=== PATIENT | male | born 1940 | race Caucasian/White ===

== ENCOUNTER 2016-03-17 12:50 | Inpatient (IN) | payer MEDICARE ==
[~2016-03-17] VITALS: Ht 170.2 cm; Wt 96.0 kg
[2016-03-17] VITALS (7 sets, daily range): BP systolic 130–168; BP diastolic 64–73; PULSE 82–104; RESP 19–20; TEMP 98.2–98.4; O2SAT 94–100
[2016-03-17] MEDS ORDERED: ONDANSETRON HCL 4 MG/2 ML VIAL ONE (12:58)
[2016-03-17] MEDS ORDERED: MORPHINE SULFATE 8 MG/ML INJ ONE (12:58)
[2016-03-17 13:18] LABS: BASOPHIL % 0.4 % (0.0-2.0); EOSINOPHIL # 0.2 TH/MM3 (0-0.4); EOSINOPHIL % 2.3 % (0.0-4.0); HEMATOCRIT 37.6 % (39.0-51.0); I-STAT POTASSIUM 3.4 MMOL/L (3.5-4.9); LYMPH % 13.9 % (9.0-44.0); LYMPHOCYTE # 1.4 TH/MM3 (1.0-4.8); MEAN CORPUSCULAR HEMOGLOBIN 31.5 PG (27.0-34.0); MEAN CORPUSCULAR HGB CONC 34.6 % (32.0-36.0); NEUT % 77.4 % (16.0-70.0); PLATELET COUNT 220 TH/MM3 (150-450); RED BLOOD COUNT 4.13 MIL/MM3 (4.50-5.90); RED CELL DISTRIBUTION WIDTH 13.5 % (11.6-17.2); WHITE BLOOD COUNT 10.3 TH/MM3 (4.0-11.0)
[2016-03-17 13:23] LABS: HEMO FLAGS AUTO DIFF
--- NOTE | 2016-03-17 13:23 | RADRPT ---
EXAM DATE/TIME: 03/17/2016 12:45 [facility] COMPARISON: No previous studies available for comparison. INDICATIONS : Trauma alert, fall off ladder. MEDICAL HISTORY : None. SURGICAL HISTORY : None. ENCOUNTER: Initial ACUITY: 1 day PAIN SCORE: 10/10 LOCATION: Right pelvis FINDINGS: Patient on a trauma board. There does appear to be a fracture involving the right side of the pelvis which may extend into the right acetabulum. The fracture appears to be relatively nondisplaced. There is good position at the pubic symphysis. No joint dislocation of the hips. There is alignment of the SI joints. A CT scan will be performed for further evaluation. CONCLUSION: There appears to be a fracture on the right side of the pelvis which may extend into the right acetab ulum. Tez Delgado MD on March 17, 2016 at 13:21 Board Certified Radiologist. This report was verified electronically.
--- NOTE | 2016-03-17 13:24 | RADRPT ---
EXAM DATE/TIME: 03/17/2016 12:45 [facility] COMPARISON: No previous studies available for comparison. INDICATIONS : Trauma alert, fall off ladder. MEDICAL HISTORY : None. SURGICAL HISTORY : None. ENCOUNTER: Initial ACUITY: 1 day PAIN SCORE: 0/10 LOCATION: Bilateral chest FINDINGS: Patient is on trauma board. The lungs are grossly clear. The heart size is upper limits of normal. No definite pleural effusions or pulmonary edema is seen. The bony structures are grossly intact. [facility] er, patient on a CT scan of the thorax for further evaluation. CONCLUSION: Lung lau appear to be clear. CT scan of the thorax to follow. Tez Delgado MD on March 17, 2016 at 13:22 Board Certified Radiologist. This report was verified electronically.
--- NOTE | 2016-03-17 13:25 | RADRPT ---
EXAM DATE/TIME: 03/17/2016 13:04 [facility] COMPARISON: No previous studies available for comparison. INDICATIONS : Trauma alert, fell off ladder. RADIATION DOSE: 56.35 CTDIvol (mGy) MEDICAL HISTORY : Non-responsive. SURGICAL HISTORY : Non-responsive. ENCOUNTER: Initial ACUITY: 1 day PAIN SCALE: Non-responsive LOCATION: cranial TECHNIQUE: Multiple contiguous axial images were obtained of the head. Using automated exposure control and adj ustment of the mA and/or kV according to patient size, radiation dose was kept as low as reasonably a chievable to obtain optimal diagnostic quality images. FINDINGS: CEREBRUM: The ventricles are normal for age. No evidence of midline shift, mass lesion, hemorrhage or acute in farction. No extra-axial fluid collections are seen. POSTERIOR FOSSA: The cerebellum and brainstem are intact. The 4th ventricle is midline. The cerebellopontine angle i s unremarkable. EXTRACRANIAL: The visualized portion of the orbits is intact. SKULL: The calvaria is intact. No evidence of skull fracture. CONCLUSION: No acute intracranial hemorrhage. Tez Delgado MD on March 17, 2016 at 13:23 Board Certified Radiologist. This report was verified electronically.
[2016-03-17 13:27] LABS: PROTHROMBIN TIME - PATIENT 11.2 SEC (9.8-11.6)
[2016-03-17] MEDS ORDERED: LIDOCAINE 2%/EPINEPHrine 1:100,000 30ML MDV INFIL ONE (13:30)
[2016-03-17] MEDS ORDERED: IOHEXOL 350 MG/ML 10 ML VIAL (for RAD DIAG) IV ONE (13:32)
--- NOTE | 2016-03-17 13:36 | PD ---
HPI Chief Complaint: trauma Time Seen by Provider: 12:53 Travel History International Travel<30 days: No Contact w/Intl Traveler<30days: No Traveled to known affect area: No History of Present Illness HPI Patient in his 70s was up on the tree cutting some limbs when he got hit by a tree limb and fell down. Soon after he fell he was complaining of right-sided hip pain. Patient was brought in by EMS. Boarded and collared. He was GCS of 15 the entire transportation along with stable vital signs. When he arrived he continued to be GCS of 15. He was in significant pain. I was in the room prior to patient's arrival waiting for him along with the trauma surgeon. [facility] Past Medical History Narrative Medical List of his past medical history as reviewed from the nursing note. Allergies-Medications (Allergen,Severity, Reaction): Coded Allergies: UNOBTAINABLE (Unverified , 03/17/16) Comments Unknown Narrative Medication Unknown Review of Systems Except as stated in HPI: all other systems reviewed are Neg Physical Exam Narrative GENERAL: Awake, alert, elderly, boarded and collared, moderate to significant distress SKIN: Warm and dry. Pale HEAD: Atraumatic. Normocephalic. EYES: Pupils equal and round. No scleral icterus. No injection or drainage. ENT: No nasal bleeding or discharge. Mucous membranes pink and moist. NECK: Trachea midline. No JVD. CARDIOVASCULAR: Regular rate and rhythm. No murmur appreciated. RESPIRATORY: No accessory muscle use. Significantly diminished air entry on the right side. GASTROINTESTINAL: Abdomen soft, non-tender, nondistended. Hepatic and splenic margins not palpable. MUSCULOSKELETAL: No obvious deformities. No clubbing. No cyanosis. No edema. Patient refused to flex his right hip due to the pain. NEUROLOGICAL: Awake and alert. No obvious cranial nerve deficits. Motor grossly within normal limits. Normal speech. PSYCHIATRIC: Anxious; insight and judgment normal. Data Data Last Documented VS Vital Signs Date Time Temp Pulse Resp B/P Pulse Ox O2 Delivery O2 Flow Rate FiO2 03/17/16 12:30 94 5.00 Orders I-Stat Profile (03/17/16 12:53) I-Stat Creatinine (03/17/16 12:53) Complete Blood Count With Diff (03/17/16 12:53) Prothrombin Time / Inr (Pt) (03/17/16 12:53) Act Partial Throm Time (Ptt) (03/17/16 12:53) Type And Screen (03/17/16 12:53) Chest, Single Ap (03/17/16 12:53) Pelvis, Ap Only (Routine) (03/17/16 12:53) Ct Brain W/O Iv Contrast(Rout) (03/17/16 12:53) Ct Cerv Spine W/O Contrast (03/17/16 12:53) Ct Abd/Pel W Iv Contrast(Rout) (03/17/16 12:53) Ct Thorax/ Chest W Iv Contrast (03/17/16 12:53) Ct Thor Spine W/O Contrast (03/17/16 12:53) Ct Lumb Spine W/O Contrast (03/17/16 12:53) Iv Access Insert/Monitor (03/17/16 12:53) Ecg Monitoring (03/17/16 12:53) Oximetry (03/17/16 12:53) Oxygen Administration (03/17/16 12:53) Ed Poc Ultrasound (03/17/16 12:53) Morphine Inj (Morphine Inj) (03/17/16 12:58) Ondansetron Inj (Zofran Inj) (03/17/16 12:58) Admit Order (Ed Use Only) (03/17/16 13:28) Lidocai-Epi 2%-1:100,000 Inj (Xylocaine- (03/17/16 13:30) Labs Laboratory Tests Test 03/17/16 12:58 White Blood Count 10.3 TH/MM3 Red Blood Count 4.13 MIL/MM3 Hemoglobin 13.0 GM/DL Bedside Hemoglobin 12.6 G/DL Hematocrit 37.6 % Bedside Hematocrit 37.0 % Mean Corpuscular Volume 91.0 FL Mean Corpuscular Hemoglobin 31.5 PG Mean Corpuscular Hemoglobin 34.6 % Concent Red Cell Distribution Width 13.5 % Platelet Count 220 TH/MM3 Mean Platelet Volume 8.7 FL Neutrophils (%) (Auto) 77.4 % Lymphocytes (%) (Auto) 13.9 % Monocytes (%) (Auto) 6.0 % Eosinophils (%) (Auto) 2.3 % Basophils (%) (Auto) 0.4 % Neutrophils # (Auto) 8.0 TH/MM3 Lymphocytes # (Auto) 1.4 TH/MM3 Monocytes # (Auto) 0.6 TH/MM3 Eosinophils # (Auto) 0.2 TH/MM3 Basophils # (Auto) 0.0 TH/MM3 CBC Comment AUTO DIFF Differential Comment AUTO DIFF CONFIRMED Platelet Estimate NORMAL Platelet Morphology Comment NORMAL Ovalocytes Prothrombin Time 11.2 SEC Prothromb Time International 1.0 RATIO Ratio Activated Partial 22.0 SEC Thromboplast Time Bedside Sodium 145 MMOL/L Bedside Potassium 3.4 MMOL/L Bedside Chloride 106 MMOL/L Bedside Blood Urea Nitrogen 26 MG/DL Bedside Creatinine 1.0 MG/DL Bedside Glucose 137 MG/DL Blood Type A POSITIVE Antibody Screen NEGATIVE MDM Medical Screen Exam Complete: Yes Emergency Medical Condition: Yes Medical Record Reviewed: Yes EKG Prior to Arrival: Yes Differential Diagnosis Right hip fracture, intracranial injury, cervical fracture, intrathoracic injury , intra-abdominal injury, pelvic fracture, pneumothorax Narrative Course 1:33 PM given a portable x-ray of the pelvis patient was put on prophylactic pelvic binder. Patient was given pain medication and rolled off the backboard. When the trauma surgeon palpated his spine and patient was complaining of midthoracic point tenderness. He went to CAT scan and his vitals and GCS remained stable. Patient is back into the ER now and the CT scan shows a right anterior pneumothorax which was not visible on the portable chest x-ray. Patient is getting a chest tube by the trauma surgeon currently. He has requested for a ICU admission. Patient has pelvic fracture and multiple rib fractures. Critical Care Narrative Aggregate critical care time was 30 minutes. Time to perform other separately billable procedures was not included in the critical care time. My time did not include minutes spent treating any other patients simultaneously or on activities that did not directly contribute to the patient's treatment. The services I provided to this patient were to treat and/or prevent clinically significant deterioration that could result in: Trauma alert, pelvic fracture, pneumothorax I provided critical care services requiring my management, as noted below: Chart data review, documentation time, medication orders and management, vital sign assessments/reviewing monitor data, ordering and reviewing lab tests, ordering and interpreting/reviewing x-rays and diagnostic studies, care of the patient and discussion of the patient with the admitting physicians. Procedures Procedure Narrative Emergency department E-FAST was performed with patient consent. The curvilinear probe was used in the right upper quadrant/Morison's pouch, suprapubic, left upper quadrant/spleenorenal space, epigastric, parasternal long axis and anterior bilateral chest wall. There was no evidence of peritoneal free fluid, pericardial effusion, or pneumothorax. Trauma Alert - Level One Trauma Alert Level One: Full trauma team activate, Patient evaluated, Trauma surgeon summoned Time Surgeon Summoned: 12:[address] Clark Diagnosis Diagnosis: Primary Impression: Fall Qualified Code: W19.XXXA - Fall, initial encounter Additional Impressions: Rib fractures Qualified Code: S22.41XA - Closed fracture of multiple ribs of right side, initial encounter Traumatic pneumothorax Qualified Code: S27.0XXA - Traumatic pneumothorax, initial encounter Pelvic fracture Qualified Code: S32.511A - Closed fracture of superior ramus of right pubis, initial encounter Admitting Physician Requests: Admit Altagracia Westbrook MD Mar 17, 2016 13:36
--- NOTE | 2016-03-17 13:56 | RADRPT ---
EXAM DATE/TIME: 03/17/2016 13:04 [facility] COMPARISON: No previous studies available for comparison. INDICATIONS : Trauma alert, fall from ladder. IV CONTRAST: 95 cc Omnipaque 350 (iohexol) IV ; Cumulative dose for multiple exams. ORAL CONTRAST: No oral contrast ingested. RADIATION DOSE: 21.93 CTDIvol (mGy) ; Combined studies - Thorax/Abdomen/Pelvis MEDICAL HISTORY : Non-responsive. SURGICAL HISTORY : Non-responsive. ENCOUNTER: Initial ACUITY: 1 day PAIN SCALE: Non-responsive LOCATION: abdomen TECHNIQUE: Volumetric scanning of the abdomen and pelvis was performed. Using automated exposure control and ad justment of the mA and/or kV according to patient size, radiation dose was kept as low as reasonably achievable to obtain optimal diagnostic quality images. FINDINGS: LOWER LUNGS: Small right pleural effusion. Multiple right rib fractures are present. Subcutaneous emphysema is not ed over the right posterior chest wall and paraspinous musculature. There is a moderate size right ba silar pneumothorax. LIVER: Homogeneous density without lesion. There is no dilation of the biliary tree. The patient is status post cholecystectomy. SPLEEN: Normal size without lesion. PANCREAS: Within normal limits. KIDNEYS: Normal in size and shape. There is no solid mass, stone or hydronephrosis. There are 2 simple appear ing cysts in the right kidney. ADRENAL GLANDS: The left adrenal gland is intact. There is a low density homogeneous mass in the right adrenal gland measuring 3.5 x 2.2 cm. VASCULAR: There is no aortic aneurysm. BOWEL/MESENTERY: The stomach, small bowel, and colon demonstrate no acute abnormality. There are multiple diverticuli . There is no free intraperitoneal air or fluid. ABDOMINAL WALL: Within normal limits. RETROPERITONEUM: There is no lymphadenopathy. BLADDER: No wall thickening or mass. REPRODUCTIVE: Within normal limits. INGUINAL: There is no lymphadenopathy or hernia. MUSCULOSKELETAL: There is a comminuted fracture deformity involving the right acetabulum with multiple fracture lines involving the roof of the acetabulum extending anteriorly and posteriorly. The femoral head and neck are intact. There is a nondisplaced fracture involving the right inferior pubic rami. There is a subt le fracture involving the right side of the sacrum as well. The sacroiliac joints are congruent. Ther e are multiple right rib fractures. CONCLUSION: 1. Moderate size right basilar pneumothorax with small right effusion and multiple rib fractures. 2. Comminuted fracture involving the right acetabulum. 3. Subtle fracture involving the right side of the sacrum. Nondisplaced fracture involving the right inferior pubic rami. 4. Right adrenal mass which is nonspecific but likely represents an adenoma. 5. Moderate diverticulosis. Efraín Anderson MD on March 17, 2016 at 13:47 Board Certified Radiologist. This report was verified electronically.
--- NOTE | 2016-03-17 14:00 | RADRPT ---
EXAM DATE/TIME: 03/17/2016 13:04 1 [facility] COMPARISON: No previous studies available for comparison. INDICATIONS : Trauma alert, fall from ladder. RADIATION DOSE: CTDIvol (mGy) ; Reconstructed from previous dataset MEDICAL HISTORY : Non-responsive. SURGICAL HISTORY : Non-responsive. ENCOUNTER: Initial ACUITY: 1 day PAIN SCALE: Non-responsive LOCATION: back TECHNIQUE: Volumetric scanning of the lumbar spine was performed. Multiplanar reconstructions in the sagittal, coronal and oblique axial planes were performed. Using automated exposure control and adjustment of the mA and/or kV according to patient size, radiation dose was kept as low as reasonably achievable t o obtain optimal diagnostic quality images. FINDINGS: VERTEBRAE: Normal vertebral body height. ALIGNMENT: No evidence of subluxation. The axial images demonstrate that the lumbar vertebral bodies and posterior elements are intact. Ther e is an enlarged left transverse process at the L5 level which articulates with the upper sacrum. A p ortion of the right acetabular fracture is visualized. There is a nondisplaced fracture involving the right side of the sacrum. The paravertebral soft tissues are within normal limits. Subcutaneous emph ysema is noted over the right paraspinous musculature. There are degenerative changes involving the f acet joints. There are annular disc bulges at the L3-4 and L4-5 levels. CONCLUSION: 1. Nondisplaced fracture involving the right side of the sacrum. 2. Visualization of a portion of the known right acetabular fracture. 3. The lumbar vertebra and posterior elements are intact. Efraín Anderson MD on March 17, 2016 at 13:55 Board Certified Radiologist. This report was verified electronically.
[2016-03-17] MEDS: SODIUM CHLOR 0.9% 1000 ML INJ 1,000 ML IV SCH (14:03)
--- NOTE | 2016-03-17 14:03 | RADRPT ---
EXAM DATE/TIME: 03/17/2016 13:08 [facility] COMPARISON: No previous studies available for comparison. INDICATIONS : Trauma alert, fall from ladder. RADIATION DOSE: 45.74 CTDIvol (mGy) MEDICAL HISTORY : Non-responsive. SURGICAL HISTORY : Non-responsive. ENCOUNTER: Initial ACUITY: 1 day PAIN SCALE: Non-responsive LOCATION: neck TECHNIQUE: Volumetric scanning of the cervical spine was performed. Multiplanar reconstructions in the sagittal, coronal and oblique axial planes were performed. Using automated exposure control and adjustment o f the mA and/or kV according to patient size, radiation dose was kept as low as reasonably achievable to obtain optimal diagnostic quality images. FINDINGS: The sagittal reconstructions demonstrate normal alignment and normal prevertebral soft tissues. The d ens is intact and there is a normal atlantoaxial relationship. Degenerative changes are present at th e C4-5, C5-6 and C6-7 levels with disc space narrowing hypertrophic change. There are mild degenerati ve change involving the atlantal axial joint as well. The axial images demonstrate that the vertebral bodies and posterior elements are intact. The soft ti ssues are within normal limits. There is no evidence of acute fracture or malalignment. Subcutaneous emphysema is noted along the right side of the neck and back. Right posterior rib fractures are again noted. The known right pneumothorax is partially visualized. CONCLUSION: 1. The cervical spine is intact with no acute fracture or malalignment. 2. Right posterior rib fractures are again noted with partial visualization of the known pneumothorax and continues emphysema. Efraín Anderson MD on March 17, 2016 at 13:59 Board Certified Radiologist. This report was verified electronically.
[2016-03-17 14:08] LABS: PLATELET ESTIMATE SMEAR NORMAL (NORMAL); PLATELET MORPHOLOGY NORMAL (NORMAL); SCAN/DIFF AUTO DIFF CONFIRMED
--- NOTE | 2016-03-17 14:08 | RADRPT ---
EXAM DATE/TIME: 03/17/2016 13:09 [facility] COMPARISON: CHEST SINGLE AP, March 17, 2016, 12:45. INDICATIONS : Trauma alert, fall from ladder. IV CONTRAST: 95 cc Omnipaque 350 (iohexol) IV ; Cumulative dose for multiple exams. RADIATION DOSE: 21.93 CTDIvol (mGy) ; Combined studies - Thorax/Abdomen/Pelvis MEDICAL HISTORY : Non-responsive. SURGICAL HISTORY : Non-responsive. ENCOUNTER: Initial ACUITY: 1 day PAIN SCALE: Non-responsive LOCATION: chest TECHNIQUE: Volumetric scanning of the chest was performed. Using automated exposure control and adjustment of t he mA and/or kV according to patient size, radiation dose was kept as low as reasonably achievable to obtain optimal diagnostic quality images. FINDINGS: There are multiple right posterior rib fractures involving the fifth through 10th ribs. There is adjacent subcutaneous emphysema. There is a moderate size right pneumothorax greatest at the anterio r lung base. There is a small right pleural effusion. There is patchy infiltrate in the right central and posterior lung. There is mediastinal shift to the left. The heart size is within normal limits. There is no evidence of adenopathy. There is no pericardial effusion. CONCLUSION: 1. Multiple right-sided rib fractures with moderate-sized pneumothorax and mediastinal shift to the l eft. 2. Multiple pleural effusion and patchy infiltrate in the right lung. Efraín Anderson MD on March 17, 2016 at 14:01 Board Certified Radiologist. This report was verified electronically.
--- NOTE | 2016-03-17 14:10 | PD ---
Data Data Last Documented VS Vital Signs Date Time Temp Pulse Resp B/P Pulse Ox O2 Delivery O2 Flow Rate FiO2 03/17/16 12:30 94 5.00 Orders I-Stat Profile (03/17/16 12:53) I-Stat Creatinine (03/17/16 12:53) Complete Blood Count With Diff (03/17/16 12:53) Prothrombin Time / Inr (Pt) (03/17/16 12:53) Act Partial Throm Time (Ptt) (03/17/16 12:53) Type And Screen (03/17/16 12:53) Chest, Single Ap (03/17/16 12:53) Pelvis, Ap Only (Routine) (03/17/16 12:53) Ct Brain W/O Iv Contrast(Rout) (03/17/16 12:53) Ct Cerv Spine W/O Contrast (03/17/16 12:53) Ct Abd/Pel W Iv Contrast(Rout) (03/17/16 12:53) Ct Thorax/ Chest W Iv Contrast (03/17/16 12:53) Ct Thor Spine W/O Contrast (03/17/16 12:53) Ct Lumb Spine W/O Contrast (03/17/16 12:53) Iv Access Insert/Monitor (03/17/16 12:53) Ecg Monitoring (03/17/16 12:53) Oximetry (03/17/16 12:53) Oxygen Administration (03/17/16 12:53) Ed Poc Ultrasound (03/17/16 12:53) Morphine Inj (Morphine Inj) (03/17/16 12:58) Ondansetron Inj (Zofran Inj) (03/17/16 12:58) Admit Order (Ed Use Only) (03/17/16 13:28) Lidocai-Epi 2%-1:100,000 Inj (Xylocaine- (03/17/16 13:30) Labs Laboratory Tests Test 03/17/16 12:58 White Blood Count 10.3 TH/MM3 Red Blood Count 4.13 MIL/MM3 Hemoglobin 13.0 GM/DL Bedside Hemoglobin 12.6 G/DL Hematocrit 37.6 % Bedside Hematocrit 37.0 % Mean Corpuscular Volume 91.0 FL Mean Corpuscular Hemoglobin 31.5 PG Mean Corpuscular Hemoglobin 34.6 % Concent Red Cell Distribution Width 13.5 % Platelet Count 220 TH/MM3 Mean Platelet Volume 8.7 FL Neutrophils (%) (Auto) 77.4 % Lymphocytes (%) (Auto) 13.9 % Monocytes (%) (Auto) 6.0 % Eosinophils (%) (Auto) 2.3 % Basophils (%) (Auto) 0.4 % Neutrophils # (Auto) 8.0 TH/MM3 Lymphocytes # (Auto) 1.4 TH/MM3 Monocytes # (Auto) 0.6 TH/MM3 Eosinophils # (Auto) 0.2 TH/MM3 Basophils # (Auto) 0.0 TH/MM3 CBC Comment AUTO DIFF Differential Comment AUTO DIFF CONFIRMED Platelet Estimate NORMAL Platelet Morphology Comment NORMAL Ovalocytes Prothrombin Time 11.2 SEC Prothromb Time International 1.0 RATIO Ratio Activated Partial 22.0 SEC Thromboplast Time Bedside Sodium 145 MMOL/L Bedside Potassium 3.4 MMOL/L Bedside Chloride 106 MMOL/L Bedside Blood Urea Nitrogen 26 MG/DL Bedside Creatinine 1.0 MG/DL Bedside Glucose 137 MG/DL Blood Type A POSITIVE Antibody Screen NEGATIVE MDM Supervised Visit with SHERYL: No Procedures Procedure Narrative CHEST TUBE THORACOSTOMY: The right chest was prepped with Betadine and sterilely draped. The area of the fifth intercostal interspace was infiltrated with 1% lidocaine plain. A 3 centimeter incision was made with a scalpel at the fifth intercostal space. Blunt dissection to the fourth intercostal interspace performed and the pleura was punctured with immediate ocampo of air. Finger was inserted in the space and thoracostomy tube was placed, directed posteriorly and superiorly. Tube draining well. The thoracostomy tube was secured with suture. Sterile seal dressing placed. Patient tolerated procedure well. Procedure was supervised by trauma surgeon Dr. Clark. 32 F chest tube placed in right chest. Post procedure CXR completed and confirmed placement of chest tube. Diagnosis Primary Impression: Fall Qualified Code: W19.XXXA - Fall, initial encounter Additional Impressions: Rib fractures Qualified Code: S22.41XA - Closed fracture of multiple ribs of right side, initial encounter Pelvic fracture Qualified Code: S32.511A - Closed fracture of superior ramus of right pubis, initial encounter Traumatic pneumothorax Qualified Code: S27.0XXA - Traumatic pneumothorax, initial encounter Leeanne Shelley DO Mar 17, 2016 14:10
[2016-03-17] MEDS ORDERED: MISCELLANEOUS NURSING INFORMATION XX SCH (14:15)
[2016-03-17] MEDS ORDERED: CHLORHEXIDINE GLUCONATE 2 % 1 PACK (2 CLOTHS) TOP PRN (14:15)
[2016-03-17] MEDS ORDERED: ONDANSETRON HCL 4 MG/2 ML VIAL IV PRN (14:15)
[2016-03-17] MEDS ORDERED: ENALAPRILAT 1.25 MG/ML VIAL IV PRN (14:15)
--- NOTE | 2016-03-17 14:23 | RADRPT ---
EXAM DATE/TIME: 03/17/2016 13:04 [facility] COMPARISON: CT THORAX W CONTRAST, March 17, 2016, 13:09. INDICATIONS : Trauma alert, fall from ladder. RADIATION DOSE: CTDIvol (mGy) ; Reconstructed from previous dataset MEDICAL HISTORY : Non-responsive. SURGICAL HISTORY : Non-responsive. ENCOUNTER: Initial ACUITY: 1 day PAIN SCALE: Non-responsive LOCATION: back TECHNIQUE: Volumetric scanning of the thoracic spine was performed. Multiplanar reconstructions in the sagittal , coronal and oblique axial planes were performed. Using automated exposure control and adjustment o f the mA and/or kV according to patient size, radiation dose was kept as low as reasonably achievable to obtain optimal diagnostic quality images. FINDINGS: The vertebral bodies of the thoracic spine are in normal alignment without evidence of subluxation. Vertebral body height is maintained. No fractures are seen. There is a mild to moderate scoliosis wi th moderate diffuse degenerative changes. There is sclerosis and anterior and lateral spurring. There is mild osteopenia. The axial images demonstrate that the vertebral bodies and posterior elements are intact. There are m ultiple right posterior rib fractures again identified involving the fourth through 11th ribs with ad jacent subcutaneous emphysema. There is a small right pleural effusion with patchy infiltrate in the right lung. Small portion of the right basilar pneumothorax is visualized. The known right adrenal ma ss is \visualized as well. CONCLUSION: 1. The thoracic vertebral bodies and posterior elements are intact. 2. Right posterior rib fractures involving the fourth through 11th ribs with partial visualization of the known pneumothorax, small effusion and lung infiltrate. 3. Visualization of the known right adrenal mass. Efraín Anderson MD on March 17, 2016 at 14:17 Board Certified Radiologist. This report was verified electronically.
--- NOTE | 2016-03-17 14:53 | RADRPT ---
EXAM DATE/TIME: 03/17/2016 14:37 [facility] COMPARISON: CT THORAX W CONTRAST, March 17, 2016, 13:09. CHEST SINGLE AP, March 17, 2016, 12:45. INDICATIONS : Evaluate for pneumothorax, post chest tube placement. MEDICAL HISTORY : None. SURGICAL HISTORY : None. ENCOUNTER: Initial ACUITY: 1 day PAIN SCORE: 0/10 LOCATION: Right chest FINDINGS: A right chest tube has been placed. No definite pneumothorax is demonstrated. The lung lau are aer ated. No pleural effusions. Heart size is stable. Subcutaneous emphysema seen along the right chest w all. CONCLUSION: Right chest tube in place. No definite pneumothorax. Tez Delgado MD on March 17, 2016 at 14:51 Board Certified Radiologist. This report was verified electronically.
[2016-03-17] MEDS ORDERED: PANTOPRAZOLE SODIUM 40 MG VIAL IVP SCH (15:00)
--- NOTE | 2016-03-17 15:24 | RADRPT ---
EXAM DATE/TIME: 03/17/2016 13:09 [facility] COMPARISON: PELVIS AP ONLY, March 17, 2016, 12:45. INDICATIONS : Fracture post fall. RADIATION DOSE: CTDIvol (mGy) ; Reconstructed from previous dataset MEDICAL HISTORY : Non-responsive. SURGICAL HISTORY : Non-responsive. ENCOUNTER: Initial ACUITY: 1 day PAIN SCALE: Non-responsive LOCATION: pelvis TECHNIQUE: Volumetric scanning of the hip was performed. Using automated exposure control and adjustment of the mA and/or kV according to patient size, radiation dose was kept as low as reasonably achievable to o btain optimal diagnostic quality images. FINDINGS: There are fractures of the anterior and middle and posterior columns of the acetabulum with a fractur e extending through the acetabular roof. Fractures of the superior-inferior pubic rami are also prese nt. There is no widening of the sacroiliac joint or pubic symphysis. The femoral head and neck are in tact. CONCLUSION: 1. 3 column acetabular fracture as above Aaron Cordero MD on March 17, 2016 at 15:10 Board Certified Radiologist. This report was verified electronically.
[2016-03-17] MEDS: DOCUSATE SODIUM 100 MG CAP PO SCH ×2 (15:50→21:00)
[2016-03-17] MEDS: MORPHINE SULFATE 4 MG/ML INJ IV PRN ×3 (15:51→21:13)
--- NOTE | 2016-03-17 16:35 | RADRPT ---
EXAM DATE/TIME: 03/17/2016 16:21 [facility] COMPARISON: CHEST SINGLE AP, March 17, 2016, 14:37. INDICATIONS : Right posterior pain, fell MEDICAL HISTORY : None. SURGICAL HISTORY : Right shoulder surgery ENCOUNTER: Initial ACUITY: 1 day PAIN SCORE: 10/10 LOCATION: Right Shoulder FINDINGS: 2 AP views of the right shoulder were obtained and demonstrate no acute fracture or malalignment. Sub cutaneous emphysema is noted over the right lateral chest wall. The right-sided chest tube is noted i n place. CONCLUSION: 1. No acute fracture or malalignment. 2. Subcutaneous emphysema and right-sided chest tube again noted. Efraín Anderson MD on March 17, 2016 at 16:32 Board Certified Radiologist. This report was verified electronically.
[2016-03-17] MEDS: ACETAMINOPHEN/HYDROcodone 325 MG/5 MG TAB PO PRN ×2 (17:14→21:15)
--- NOTE | 2016-03-17 18:09 | MH ---
cc: ENRIQUETA DOBBS MD DATE OF ADMISSION: 03/17/2016 AKA: [id number] CHIEF COMPLAINT Trauma alert, right hip, right chest pain. HISTORY OF PRESENT ILLNESS The patient is a 75-year-old male, he was on a ladder cutting branches off a tree and he is status post fall. He fell approximately 15 feet. Denies any loss of consciousness and landed on his right side. He was transferred to the emergency department trauma bay with the similar complaints. He was hemodynamically stable en route and stable in the trauma bay. He was complaining of some right-sided pain and was noted to have decreased right-sided breath sounds and minimal crepitus. Chest x-ray obtained did not show significant pneumothorax. The patient was then taken to the CT scanner however and showed a large anterior right pneumothorax along with multiple right rib fractures and a right acetabular fracture. He was stabilized and transferred to [facility] for further evaluation and treatment. PAST MEDICAL HISTORY 1. Hypertension. 2. Cardiac stents, on blood thinner. PAST SURGICAL HISTORY 1. Right shoulder. 2. Bilateral inguinal hernias. 3. Open gallbladder. 4. Multiple eye surgeries. SOCIAL HISTORY Positive smoking. Denies ETOH or IVDA. MEDICATIONS see EMR ALLERGIES NO KNOWN DRUG ALLERGIES. FAMILY HISTORY Denies any hypertension or diabetes. REVIEW OF SYSTEMS GENERAL: Denies loss of consciousness. HEENT: Denies eye pain or ear pain. RESPIRATORY: Complains of some shortness of breath and right-sided chest pain. CARDIAC: Denies palpitations or significant central chest pain. ABDOMEN: Denies nausea or vomiting. GENITOURINARY: Denies dysuria or hematuria. ENDOCRINE: Denies polyuria or polydipsia. HEMATOLOGIC: Denies easy bruising or hemarthrosis. PSYCHIATRIC: Denies change in mood or altered sensorium. INTEGUMENTARY: Complained of some bruising. Denies recent masses. PHYSICAL EXAMINATION GENERAL: The patient in no acute distress. VITAL SIGNS: Pulse 104, blood pressure 168/73, saturation 94% on 2 liters, temperature is 98.2. HEENT: PERRLA. Pupils equal, reactive. NECK: Trachea midline. C-collar in place. HEART: S1, S2, tachy, regular. LUNGS: Decreased breath sounds on the right, minimal crepitus, bilateral expansion. Positive tenderness to palpation on the right. ABDOMEN: Soft, nontender, nondistended. BACK: No step-offs, nontender. PELVIS: Stable. GENITOURINARY: Within normal limits. No blood at the meatus. EXTREMITIES: Moving all extremities. 5/5 motor. NEUROLOGIC: GCS of 15. AAO x4. LABORATORY DIAGNOSTIC DATA WBC 10.3, hemoglobin of 13, hematocrit 37.6, platelets 220. Sodium 145, potassium 3.4, chloride 106, BUN 26, creatinine 1, glucose 137. INR 1, PT 11.2, PTT 22. IMAGING Images reviewed by myself. CT head: No evidence of acute fracture. CT C-spine: No acute fracture. Visualized rib fractures. CT chest, abdomen and pelvis: Moderate-size right pneumo anterior thorax. Small right effusion. Multiple rib fractures. A comminuted acetabular fracture on the right. Anterior sacral fracture nondisplaced. Right inferior pubic rami fracture. Adrenal mass. Diverticulosis. Lumbar spine: No evidence of vertebral lumbar fractures. Thoracic spine: Multiple rib fractures. No evidence of lumbar spine fracture. Right posterior rib fractures 4-11. Shoulder x-ray: No fracture. ASSESSMENT A 75-year-old male status post fall from 15 feet, multiple rib fractures 4-11 on the right, pneumothorax on the right, a right acetabular fracture. PLAN After full radiologic, clinical and diagnostic workup, the patient with above-named complaints including multiple rib fractures 4-11. We will do adequate pain control, pulmonary toilet, recheck a chest x-ray in the morning and keep close monitoring of this. For the patient's pneumothorax, we will place a chest tube for reexpansion and place on 20 mm of suction. We will continue pulmonary toilet, recheck a chest x-ray following chest tube placement in the a.m. For the right acetabular fracture, this was consulted and discussed with orthopedics for further evaluation and likely nonoperative management at this time; further discussion to be made. The patient will be sent to [facility] with consultation, kept n.p.o., pain control, close monitoring with Is and Os, and further evidence of ongoing injury. Greater than 45 minutes were done regarding trauma workup, history, physical and evaluation of this patient. MD ELIZABETH Del Rio/ANASTASIA /5:00 PM /5:31 PM JESE
--- NOTE | 2016-03-17 19:21 | MB ---
cc: BRAD ENGLISH MD DATE OF CONSULTATION 03/17/16 REASON FOR CONSULTATION Right acetabular fracture, right shoulder injury. HISTORY OF PRESENT ILLNESS The patient is a 75-year-old man who was cutting some limbs of a tree, got hit by a tree limb as it was coming down. He fell apparently into a pool area. The patient complained of significant pain about the right side of his chest. He was found to have a pneumothorax on multiple rib fractures. He had chest tube placed, admitted to the hospital. He also had injury about the pelvis showing an acetabular fracture. The trauma physician had contacted me. I did review the imaging. I had requested from radiology to take the current imaging and create a reconstruction of that already performed image for further analysis. The patient denies having pain about the right hip in the past. He denies any specific numbness or tingling radiating down the right lower extremity. He does have a problem about the right shoulder before with previous surgery. PAST MEDICAL HISTORY See the chart as it is documented and he does take some blood thinners for a history of heart disease. ALLERGIES Unknown REVIEW OF SYSTEMS A 12 point review of systems is negative except as noted in the history of present illness. Note that he does also have a history of low back pain and does have some low back pain currently. He states some cramping about the left leg as well. He did have some difficulty breathing with improvement with the chest tube. FAMILY HISTORY Noncontributory. PHYSICAL EXAMINATION VITAL SIGNS: Pulse is 104, respirations 20, blood pressure 168/73. GENERAL: He is awake, alert and oriented x3. He has multiple family members at the bedside including his . The patient even was making a couple of jokes. HEENT: The patient's head is atraumatic. Extraocular muscles are intact. Oropharynx is moist. NECK: Supple. LUNGS: Diminished lung sounds on the right side. He has a chest tube placed on the right side with some bloody drainage. ABDOMEN: Soft and nontender. BACK: Some diffuse tenderness. right shoulder has incision on the lateral aspect of the shoulder. He did not have any real significant pain with internal and external rotation passively of the shoulder. He did, however, have significant tenderness to palpation. An abdominal binder that was applied. I removed the abdominal binder. GENITOURINARY: Genitalia was normal. MUSCULOSKELETAL: He has some mild swelling around the right hip. No significant lacerations noted. EXTREMITIES: He can actively move the toes well on the right foot and the right ankle. He has 2+ dorsalis pedis pulse and normal sensation distally. Examination of the left knee shows no tenderness. He had some mild tenderness about the mid aspect of the calf with no swelling. No instability about the tibia was noted. He can move the toes well. He has 2+ dorsalis pedis pulse. LABORATORY DATA White cell count of 10.3, hematocrit 37.6, platelets of 220. Coagulation studies - INR is 1.0. Chemistries - glucose 137. IMAGING STUDIES I reviewed the imaging of the shoulder, the report including x-rays, which are somewhat suboptimal but I do not appreciate fractures or dislocations. There may be evidence of a distal clavicle excision prior. Imaging of the hip includes x-rays and a reconstructed CT scan that was reviewed. It does show that the patient has a fracture of the right anterior sacrum and, additionally, there are fractures of the posterior column with minimal displacement. There is fracture essentially anterior acetabulum which is very high pubic ramus fracture, no dislocation is noted. IMPRESSION 1. Right sided acetabular fracture, minimal displacement. 2. Sacral fracture. 3. Right shoulder contusion DECISION MAKING I reviewed the results of the imaging with the patient and his . For the shoulder, I recommend conservative management and observation. As for the right acetabular is concerned, would like to review these images with my partner, Dr. David Martínez, who is a traumatology orthopedic surgeon to get his opinion. Based on the displacement, I am leaning towards nonoperative management, especially given the patient's age. However, I would like to have another opinion for the possibility of surgical management. We talked about the recovery timeline typical for acetabular fractures. This probably will end up being delayed and difficult because the patient had the rib fractures and the shoulder injury which will make the use a walker more difficult. Thank you for allowing me to participate in the care of this patient. MD REN Cordoba/ /5:52 PM /7:06 PM
[2016-03-18] VITALS (13 sets, daily range): BP systolic 114–154; BP diastolic 56–74; PULSE 56–86; RESP 14–21; TEMP 97.2–98.4; O2SAT 96–99
[2016-03-18] MEDS: SODIUM CHLOR 0.9% 1000 ML INJ 1,000 ML IV SCH ×3 (00:03→20:33)
[2016-03-18] MEDS: ACETAMINOPHEN/HYDROcodone 325 MG/5 MG TAB PO PRN ×4 (03:24→20:32)
[2016-03-18] MEDS: MORPHINE SULFATE 4 MG/ML INJ IV PRN ×3 (03:29→23:34)
[2016-03-18] MEDS: CHLORHEXIDINE GLUCONATE 2 % 1 PACK (2 CLOTHS) TOP SCH (04:00)
[2016-03-18 04:36] LABS: AUTOMATED NEUTROPHIL # 9.6 TH/MM3 (1.8-7.7); BASOPHIL % 0.2 % (0.0-2.0); EOSINOPHIL # 0.1 TH/MM3 (0-0.4); EOSINOPHIL % 0.6 % (0.0-4.0); HEMATOCRIT 32.2 % (39.0-51.0); HEMO FLAGS DIFF FINAL; LYMPH % 6.6 % (9.0-44.0); LYMPHOCYTE # 0.8 TH/MM3 (1.0-4.8); MEAN CELL VOLUME 92.7 FL (80.0-100.0); MEAN CORPUSCULAR HEMOGLOBIN 31.3 PG (27.0-34.0); MEAN CORPUSCULAR HGB CONC 33.8 % (32.0-36.0); MONO % 9.8 % (0.0-8.0); NEUT % 82.8 % (16.0-70.0); PLATELET COUNT 157 TH/MM3 (150-450); RED BLOOD COUNT 3.48 MIL/MM3 (4.50-5.90); RED CELL DISTRIBUTION WIDTH 13.7 % (11.6-17.2); WHITE BLOOD COUNT 11.6 TH/MM3 (4.0-11.0)
[2016-03-18 05:02] LABS: BICARBONATE 26.8 MEQ/L (21.0-32.0); POTASSIUM 4.1 MEQ/L (3.5-5.1)
--- NOTE | 2016-03-18 05:58 | RADRPT ---
EXAM DATE/TIME: 03/18/2016 04:29 [facility] COMPARISON: CHEST SINGLE AP, March 17, 2016, 14:37. INDICATIONS : Please evaluate after respiratory failure. MEDICAL HISTORY : right side chest tube. SURGICAL HISTORY : None. ENCOUNTER: Subsequent ACUITY: 3 days PAIN SCORE: Non-responsive. LOCATION: Bilateral chest FINDINGS: Subcutaneous emphysema is again seen on the right. Chest tube is present on the right side. No defini te pneumothorax is seen for technique. Slight right lung base atelectasis and/or infiltrate is seen. There may be slight atelectasis in the left lung base. CONCLUSION: Mild right lung base atelectasis and/or infiltrate is seen. Awais Mcnamara MD on March 18, 2016 at 5:56 Board Certified Radiologist. This report was verified electronically.
[2016-03-18] MEDS ORDERED: MAGNESIUM HYDROXIDE SUSP 30 ML CUP PO PRN (08:15)
[2016-03-18] MEDS: DOCUSATE SODIUM 50 MG/SENNA 8.6 MG TAB PO SCH ×2 (08:27→20:32)
[2016-03-18] MEDS: FAMOTIDINE 20 MG TAB PO SCH ×2 (08:27→20:32)
[2016-03-18] MEDS ORDERED: SODIUM CHLORID 0.9% 500 ML INJ 500 ML IV SCH (11:15)
--- NOTE | 2016-03-18 14:59 | PD.ORT.PN ---
Subjective Subjective Remarks Hip that continues to be painful on the right side. Shoulder also has some pain. He denies any new numbness or tingling in either these areas. He worked with physical therapy which she said did give him some improvement. Abduction pillow was at the bedside. Objective Vitals Vital Signs Date Time Temp Pulse Resp B/P Pulse Ox O2 Delivery O2 Flow Rate FiO2 03/18/16 14:00 71 03/18/16 12:00 98.1 86 21 154/70 96 03/18/16 12:00 86 03/18/16 10:00 58 03/18/16 09:28 16 03/18/16 08:31 98 Nasal Cannula 2.00 03/18/16 08:00 98.1 56 20 116/59 99 03/18/16 08:00 56 03/18/16 07:00 99 Nasal Cannula 2.00 03/18/16 06:00 56 03/18/16 04:00 97.2 78 16 128/58 97 03/18/16 04:00 78 03/18/16 02:00 70 03/18/16 00:00 73 03/18/16 00:00 98.3 73 19 114/56 98 03/17/16 22:00 82 03/17/16 21:00 100 Nasal Cannula 4.00 03/17/16 20:00 98.2 98 19 130/64 94 03/17/16 20:00 98 03/17/16 19:00 98 Nasal Cannula 2.00 03/17/16 18:00 102 03/17/16 17:57 18 03/17/16 17:57 18 03/17/16 16:00 99 03/17/16 16:00 98.4 99 20 142/65 96 03/17/16 15:15 98 Nasal Cannula 4.00 I/O 03/17/16 03/17/16 03/17/16 03/18/16 03/18/16 03/18/16 07:00 15:00 23:00 07:00 15:00 23:00 Intake Total 1415 ml 1088 ml Output Total 720 ml 285 ml Balance 695 ml 803 ml Intake Oral 800 ml 350 ml IV Total 615 ml 738 ml Output Urine Total 400 ml 225 ml Chest Tube Drainage Total 320 ml 60 ml # Bowel Movements 0 0 Result Diagram: 03/18/16 0355 03/18/16 0355 Imaging Last 24 hours Impressions Chest X-Ray 03/18/16 0000 Signed Impressions: Service Date/Time: Friday, March 18, 2016 04:29 - CONCLUSION: Mild right lung base atelectasis and/or infiltrate is seen. Awais Mcnamara MD Objective Remarks Right shoulder has limited range of motion of a moderate degree. He has no swelling about the shoulder noted. Well-healed incision is noted. Right hip has mild swelling. He has no tenderness about the right calf. He moves the toes actively well. He has brisk capillary refill about the right lower extremity. There is normal sensation distally. Range of motion of the hip is limited. Assessment & Plan Assessment and Plan 1right complex acetabular fracture, with right sacral fracture. 2right shoulder contusion. I discussed the acetabular fracture with Dr. Valladares and we reviewed the images. We both feel that nonoperative management is appropriate for this patient at this time. The patient will require close follow-up in the office in about 1-2 weeks to take x-rays AP pelvis and 2 today views of the right hip. He has the abduction pillow at the bedside. I instructed the patient and his on the use of the abduction pillow. The patient will remain toe-touch weightbearing on the right lower extremity. The right shoulder will be treated conservatively with active and passive range of motion. He can weight-bear as tolerated through the right shoulder. Reconsult as needed. Allen Yoon MD Mar 18, 2016 14:59
--- NOTE | 2016-03-18 16:43 | PD.CONS ---
HPI Service Neurosurgery Consult Requested By ED/trauma Reason for Consult Fall Primary Care Physician Unknown History of Present Illness 75 yr old fell from a ladder 15 feet with no LOC. He landed on his right side and back. The area is still very tender. He has no headache or neck pain and no amnesia of the events. GCS is 15. He required a chest tube for a pneumotx and has an acetabular fx as well as a sacral anterior fx. Weight bearing was attempted but was too painful. There is no sensory level but he has significant back pain. Review of Systems Constitutional: DENIES: Diaphoretic episodes, Fatigue, Fever, Weight gain, Weight loss, Chills, Dizziness, Change in appetite, Night Sweats Eyes: DENIES: Blurred vision, Diplopia, Eye inflammation, Eye pain, Vision loss , Photosensitivity, Double Vision Cardiovascular: DENIES: Chest pain, Palpitations, Syncope, Dyspnea on Exertion , PND, Lower Extremity Edema, Orthopnea, Claudication Gastrointestinal: DENIES: Abdominal pain, Black stools, Bloody stools, Constipation, Diarrhea, Nausea, Vomiting, Difficulty Swallowing, Anorexia Neurologic: DENIES: Abnormal gait, Headache, Localized weakness, Paresthesias, Seizures, Speech Problems, Tremor, Poor Balance Psychiatric: DENIES: Anxiety, Confusion, Mood changes, Depression, Hallucinations, Agitation, Suicidal Ideation, Homicidal Ideation, Delusions Past Family Social History Allergies: Coded Allergies: UNOBTAINABLE (Unverified , 03/17/16) Past Medical History HTN, CAD Past Surgical History Right shoulder surgery Hernia repair Cholecystectomy Cardiac stent placement Family History not known Social History Physical Exam Vital Signs Vital Signs Date Time Temp Pulse Resp B/P Pulse Ox O2 Delivery O2 Flow Rate FiO2 03/18/16 16:00 82 03/18/16 16:00 98.3 82 14 150/74 99 03/18/16 14:00 71 03/18/16 12:00 98.1 86 21 154/70 96 03/18/16 12:00 86 03/18/16 10:00 58 03/18/16 09:28 16 03/18/16 08:31 98 Nasal Cannula 2.00 03/18/16 08:00 98.1 56 20 116/59 99 03/18/16 08:00 56 03/18/16 07:00 99 Nasal Cannula 2.00 03/18/16 06:00 56 03/18/16 04:00 97.2 78 16 128/58 97 03/18/16 04:00 78 03/18/16 02:00 70 03/18/16 00:00 73 03/18/16 00:00 98.3 73 19 114/56 98 03/17/16 22:00 82 03/17/16 21:00 100 Nasal Cannula 4.00 03/17/16 20:00 98.2 98 19 130/64 94 03/17/16 20:00 98 03/17/16 19:00 98 Nasal Cannula 2.00 03/17/16 18:00 102 03/17/16 17:57 18 03/17/16 17:57 18 Physical Exam Pleasant gentleman alert and oriented x 3, eomi, face symmetric, voice intact Motor strength is excellent in both upper and lower extremities with no tone abnormality, Sensation present in all extremities with no radicular loss No Herndon or Babinski signs. Chest tube in place as well as bolsters to prevent adduction of the legs. Laboratory Laboratory Tests Test 03/18/16 03/18/16 03:55 11:33 White Blood Count 11.6 Red Blood Count 3.48 Hemoglobin 10.9 Hematocrit 32.2 Mean Corpuscular Volume 92.7 Mean Corpuscular Hemoglobin 31.3 Mean Corpuscular Hemoglobin 33.8 Concent Red Cell Distribution Width 13.7 Platelet Count 157 Mean Platelet Volume 8.7 Neutrophils (%) (Auto) 82.8 Lymphocytes (%) (Auto) 6.6 Monocytes (%) (Auto) 9.8 Eosinophils (%) (Auto) 0.6 Basophils (%) (Auto) 0.2 Neutrophils # (Auto) 9.6 Lymphocytes # (Auto) 0.8 Monocytes # (Auto) 1.1 Eosinophils # (Auto) 0.1 Basophils # (Auto) 0.0 CBC Comment DIFF FINAL Differential Comment Sodium Level 143 Potassium Level 4.1 Chloride Level 108 Carbon Dioxide Level 26.8 Anion Gap 8 Blood Urea Nitrogen 22 Creatinine 1.08 Estimat Glomerular Filtration 67 Rate Random Glucose 135 Calcium Level 8.0 Nasal Screen MRSA (PCR) NEGATIVE Result Diagram: 03/18/16 0355 03/18/16 0355 Imaging Last Impressions Chest X-Ray 03/18/16 0000 Signed Impressions: Service Date/Time: Friday, March 18, 2016 04:29 - CONCLUSION: Mild right lung base atelectasis and/or infiltrate is seen. Awais Mcnamara MD Thoracic Spine CT 03/17/16 1253 Signed Impressions: Service Date/Time: February 13:04 - CONCLUSION: 1. The thoracic vertebral bodies and posterior elements are intact. 2. Right posterior rib fractures involving the fourth through 11th ribs with partial visualization of the known pneumothorax, small effusion and lung infiltrate. 3. Visualization of the known right adrenal mass. Efraín Anderson MD Pelvis X-Ray 03/17/16 125 Signed Impressions: Service Date/Time: February 12:45 - CONCLUSION: There appears to be a fracture on the right side of the pelvis which may extend into the right acetabulum. Tez Delgado MD Lumbar Spine CT 03/17/16 1253 Signed Impressions: Service Date/Time: February 13:04 - CONCLUSION: 1. Nondisplaced fracture involving the right side of the sacrum. 2. Visualization of a portion of the known right acetabular fracture. 3. The lumbar vertebra and posterior elements are intact. Efraín Anderson MD Head CT 03/17/16 1253 Signed Impressions: Service Date/Time: February 13:04 - CONCLUSION: No acute intracranial hemorrhage. Tez Delgado MD Chest CT 03/17/16 1253 Signed Impressions: Service Date/Time: February 13:09 - CONCLUSION: 1. Multiple right-sided rib fractures with moderate-sized pneumothorax and mediastinal shift to the left. 2. Multiple pleural effusion and patchy infiltrate in the right lung. Efraín Anderson MD Cervical Spine CT 03/17/16 1253 Signed Impressions: Service Date/Time: February 13:08 - CONCLUSION: 1. The cervical spine is intact with no acute fracture or malalignment. 2. Right posterior rib fractures are again noted with partial visualization of the known pneumothorax and continues emphysema. Efraín Anderson MD Abdomen/Pelvis CT 03/17/16 1253 Signed Impressions: Service Date/Time: February 13:04 - CONCLUSION: 1. Moderate size right basilar pneumothorax with small right effusion and multiple rib fractures. 2. Comminuted fracture involving the right acetabulum. 3. Subtle fracture involving the right side of the sacrum. Nondisplaced fracture involving the right inferior pubic rami. 4. Right adrenal mass which is nonspecific but likely represents an adenoma. 5. Moderate diverticulosis. Efraín Anderson MD Shoulder X-Ray 03/17/16 0000 Signed Impressions: Service Date/Time: February 16:21 - CONCLUSION: 1. No acute fracture or malalignment. 2. Subcutaneous emphysema and right-sided chest tube again noted. Efraín Anderson MD Lower Extremity CT 03/17/16 0000 Signed Impressions: Service Date/Time: February 13:09 - CONCLUSION: 1. 3 column acetabular fracture as above Aaron Cordero MD Assessment and Plan Assessment and Plan Fall with no neurologic deficit at this time. Activity will be restricted from the sacral and acetabular fractures. The back pain is likely from the posterior rib fractures although he also has chronic degenerative scoliosis. Jair Escamilla Mar 18, 2016 16:43
[2016-03-18] MEDS ORDERED: ATOR1TAB18 PO (17:49)
[2016-03-18] MEDS ORDERED: ASPI81TA11 PO (17:49)
[2016-03-18] MEDS ORDERED: LISI-515 PO (17:49)
--- NOTE | 2016-03-18 17:58 | HHI.CCPN ---
Subjective Brief History 75 year old male was up on on a ladder cutting some tree limbs when he got hit by a tree limb and fell down landing on his right side. No LOC. Initial complaints of right-sided hip pain. Patient was noted to have right chest wall crepitus and subsequent pneumothorax. Patient was also noted to have right sided rib fractures, right acetabular fracture and right inferior pubic rami fracture. Right sided CT was placed in trauma bay. INJURIES: RIGHT Rib fx (4-11) RIGHT PTX RIGHT acetabular fx RIGHT inferior pubic rami fx (non-displaced) Sacral fx RIGHT shoulder contusion PMHx: HTN, CAD with stents on anticoagulant. 24 Hour Review/Hospital Course 03/18/16 Patient has been stable in ICU overnight Complaint of significant hip pain with inability to move right leg due to pain ( Wendy Hollis) Objective Vital Signs Date Time Temp Pulse Resp B/P Pulse Ox O2 Delivery O2 Flow Rate FiO2 03/18/16 16:34 20 03/18/16 16:00 82 03/18/16 16:00 98.3 150/74 99 03/18/16 08:31 Nasal Cannula 2.00 Intake and Output 03/17/16 03/17/16 03/18/16 08:00 16:00 00:00 Intake Total 1415 ml Output Total 720 ml Balance 695 ml (Wendy Hollis) Result Diagram: 03/18/16 0355 03/18/16 0355 Imaging Last 24 hours Impressions Chest X-Ray 03/18/16 0000 Signed Impressions: Service Date/Time: Friday, March 18, 2016 04:29 - CONCLUSION: Mild right lung base atelectasis and/or infiltrate is seen. Awais Mcnamara MD (Wendy Hollis) Assessment and Plan Plan GENERAL: 75-year-old well-nourished, well developed male lying in bed. SKIN: Warm and dry. HEAD: Atraumatic. Normocephalic. EYES: PERRL. ENT: No nasal bleeding or discharge. Mucous membranes pink and moist. NECK: Trachea midline. No JVD. CARDIOVASCULAR: Regular rate and rhythm. RESPIRATORY: No accessory muscle use. Lungs clear to auscultation. Breath sounds equal bilaterally. Right lateral chest tube in place secured to pleura vac. No air leak. GASTROINTESTINAL: Abdomen soft, non-tender, nondistended. + BS. Renteria catheter in place with clear yellow urine. MUSCULOSKELETAL: Extremities without cyanosis, or edema. No obvious deformities. Patient refuses to move legs due to severity of pain with movement. Able to wiggle toes bilaterally. Limited range of motion in right arm due to pain. NEUROLOGICAL: Awake and alert. Normal speech. NEUROLOGICAL: A&O x3 Analgesia for comfort and pain- [place], Morphine IV Neurosurgery consulted, appreciate recommendations HOB elevated > 30 degrees CARDIOVASCULAR: HR = sinus rhythm. HR = 55 - 85 BPM. BP = MAP 90's PMHx: HTN, hyperlipidemia, CAD with stent placement Resumed home lisinopril and Lipitor Follow CMP - Electrolyte protocol in place for replacement. RESPIRATORY: On 2 L nasal cannula Right CT placed to water seal today Continue to monitor closely for hypoxemia. Pulmonary toilet - L&S. Bronchodilators - Duonebs q2H PRN 03/18 CXR -mild right lung base atelectasis and/or infiltrate Labs in AM Chest X-Ray in AM GASTROINTESTINAL: Diet - Regular Bowel regimen - Eliza-colace and MOM. No BM yet RENAL / URINARY: I&O +1353 BUN / creat 22 / 1.08 Renteria - in place to bedside drainage bag ENDOCRINE: BGM - 135 HEMATOLOGY: H&H: 10.9 / 32.2 Continue to monitor for signs and symptoms of bleeding. Transfuse for < 7.0 Monitor patient for any bleeding complications. INFECTIOUS DISEASE: Follow CBC WBC 11.6 PLT 157 Afebrile Administer antipyretics as needed PROPHYLAXIS: GI - Protonix IV DVT - Mechanical VTE with SCDs. Chemical management with Lovenox. Plavix, ASA daily SKIN: Warm / Dry ACTIVITY: Status -BR PT and OT evaluating. CASE MANAGEMENT: Consulted for assist with DC planning. Placement - disposition. Patient will likely need rehabilitation versus SNF placement. Dr. Martínez to assess acetabular fracture and determine plan of care. Patient will likely transfer to Med/Surg floor in a.m. if remains stable overnight Plan of care discussed with RN and patient at bedside. (Wendy Hollis) Attestation This patient will have tremendous difficulty walking and recovering from this quite impressive set of injuries especially in the face of his age He will need extensive rehabilitation Chest tube will be removed in next day or 2 The exam, history, and the medical decision-making described in the above note were completed with the assistance of the mid-level provider. I reviewed and agree with the findings presented. I attest that I had a [id number] encounter with the patient on the same day, and personally performed and documented my assessment and findings in the medical record. (Preeti Astorga MD) Wendy Hollis Mar 18, 2016 17:58 Preeti Astorga MD Mar 24, 2016 16:34
[2016-03-18] MEDS ORDERED: RESP: ALBUTEROL 2.5 MG/IPRATROPIUM 0.5 MG NEB (PRN) NEB (18:15)
[2016-03-18] MEDS: LISINOPRIL 20 MG TAB PO SCH (20:32)
--- NOTE | 2016-03-18 22:45 | EKG ---
Date Performed: 03/17/2016 Time Performed: 21:51:17 PTAGE: 75 years EKG: Sinus rhythm BORDERLINE LEFT AXIS DEVIATION LOW QRS VOLTAGE IN PRECORDIAL LEADS PATTERN CONSISTENT WITH PULMONARY DISEASE MINIMAL VOLTAGE CRITERIA FOR LVH, CONSIDER NORMAL VARIANT NONSPECIFIC T-WAVE ABNORMALITY ABN ORMAL ECG NO PREVIOUS TRACING DOCTOR: Amanda Feliciano Interpretating Date/Time 03/18/2016 22:42:55
[2016-03-19] VITALS (11 sets, daily range): BP systolic 135–169; BP diastolic 68–74; PULSE 30–89; RESP 14–18; TEMP 96.1–98.7; O2SAT 97–100
[2016-03-19] MEDS: MORPHINE SULFATE 4 MG/ML INJ IV PRN ×7 (02:51→21:05)
[2016-03-19] MEDS: ACETAMINOPHEN/HYDROcodone 325 MG/5 MG TAB PO PRN ×5 (02:51→21:05)
--- NOTE | 2016-03-19 06:14 | RADRPT ---
EXAM DATE/TIME: 03/19/2016 05:27 [facility] COMPARISON: CHEST SINGLE AP, March 18, 2016, 4:29. INDICATIONS : Evaluate after traumatic injury. MEDICAL HISTORY : None. SURGICAL HISTORY : None. Right side chest tube ENCOUNTER: Subsequent ACUITY: 3 days PAIN SCORE: 8/10 LOCATION: Bilateral chest FINDINGS: Chest drainage tube on the right side remains projected in lower chest. No pneumothorax seen. Patie nt is rotated slightly to the left. Linear opacities at the left base atelectasis or infiltrate stab le from prior. Persistent subcutaneous emphysema about the right lateral chest wall and supraclavicu lar. CONCLUSION: Right chest tube in place. No pneumothorax seen. Left lower lobe atelectasis or infiltrate, stable. Bowen Nava MD on March 19, 2016 at 6:11 Board Certified Radiologist. This report was verified electronically.
[2016-03-19] MEDS: SODIUM CHLOR 0.9% 1000 ML INJ 1,000 ML IV SCH (06:15)
[2016-03-19] MEDS: CHLORHEXIDINE GLUCONATE 2 % 1 PACK (2 CLOTHS) TOP SCH (06:15)
[2016-03-19 06:33] LABS: BICARBONATE 26.8 MEQ/L (21.0-32.0)
[2016-03-19] MEDS: ATORVASTATIN 80 MG TAB PO SCH (07:53)
[2016-03-19] MEDS: FAMOTIDINE 20 MG TAB PO SCH ×2 (07:54→21:04)
[2016-03-19] MEDS: DOCUSATE SODIUM 50 MG/SENNA 8.6 MG TAB PO SCH ×2 (07:54→21:03)
[2016-03-19] MEDS: LISINOPRIL 20 MG TAB PO SCH ×2 (07:54→21:03)
[2016-03-19 08:39] LABS: HEMATOCRIT 27.1 % (39.0-51.0); MEAN CELL VOLUME 92.2 FL (80.0-100.0); MEAN CORPUSCULAR HEMOGLOBIN 31.5 PG (27.0-34.0); MEAN CORPUSCULAR HGB CONC 34.2 % (32.0-36.0); PLATELET COUNT 97 TH/MM3 (150-450); RED BLOOD COUNT 2.94 MIL/MM3 (4.50-5.90); RED CELL DISTRIBUTION WIDTH 13.7 % (11.6-17.2); WHITE BLOOD COUNT 9.7 TH/MM3 (4.0-11.0)
[2016-03-19 08:40] LABS: REVIEW FLAG AUTO DIFF
[2016-03-19] MEDS: MAGNESIUM HYDROXIDE SUSP 30 ML CUP PO SCH ×2 (09:00→10:10)
[2016-03-19] MEDS ORDERED: LACTULOSE SYRUP 20 GM/30 ML CUP PO ONE (10:15)
[2016-03-19] MEDS: ENOXAPARIN SODIUM 40 MG/0.4 ML SYRINGE SQ SCH (11:17)
[2016-03-19] MEDS: LACTULOSE SYRUP 20 GM/30 ML CUP PO PRN (11:17)
--- NOTE | 2016-03-19 14:36 | HHI.CCPN ---
Subjective Brief History 75 year old male was up on on a ladder cutting some tree limbs when he got hit by a tree limb and fell down landing on his right side. No LOC. Initial complaints of right-sided hip pain. Patient was noted to have right chest wall crepitus and subsequent pneumothorax. Patient was also noted to have right sided rib fractures, right acetabular fracture and right inferior pubic rami fracture. Right sided CT was placed in trauma bay. INJURIES: RIGHT Rib fx (4-11) RIGHT PTX RIGHT acetabular fx RIGHT inferior pubic rami fx (non-displaced) Sacral fx RIGHT shoulder contusion PMHx: HTN, CAD with stents on anticoagulant. 24 Hour Review/Hospital Course 03/18/16 Patient has been stable in ICU overnight Complaint of significant hip pain with inability to move right leg due to pain 03/19/16 Overall patient has improved Is more comfortable with current level of pain medication Has been sitting on the side of the bed The acetabular fracture was deemed nonoperable and the according to orthopedics is better to let it heal and treat by conservative means Patient will be unable to walk for a while however he is sitting at the side of the bed which is important for pulmonary function V/Q mismatch and possible development of atelectasis and pneumonia Objective Vital Signs Date Time Temp Pulse Resp B/P Pulse Ox O2 Delivery O2 Flow Rate FiO2 03/19/16 14:00 83 03/19/16 13:55 18 03/19/16 12:00 98.5 166/71 98 03/19/16 09:11 Nasal Cannula 3.00 Intake and Output 03/18/16 03/18/16 03/19/16 08:00 16:00 00:00 Intake Total 1088 ml 1037 ml 736 ml Output Total 285 ml 280 ml 370 ml Balance 803 ml 757 ml 366 ml Result Diagram: 03/19/16 0519 03/19/16 0519 Imaging Last 24 hours Impressions Chest X-Ray 03/19/16 0600 Signed Impressions: Service Date/Time: Saturday, March 19, 2016 05:27 - CONCLUSION: Right chest tube in place. No pneumothorax seen. Left lower lobe atelectasis or infiltrate, stable. Bowen Nava MD Exam VISUAL BASIC PROGRAMMER Awake alert oriented Hemodynamic/Cardiac Hemodynamically stable Pulmonary/Respiratory Good inspiratory effort with bilateral lung expansion Abdomen/GI Nutrition Abdomen is soft patient's on diet which he tolerates well Renal/I&O Renal output is normal and glomerular filtration rate is normal Assessment and Plan Plan GENERAL: 75-year-old well-nourished, well developed male lying in bed. SKIN: Warm and dry. HEAD: Atraumatic. Normocephalic. EYES: PERRL. ENT: No nasal bleeding or discharge. Mucous membranes pink and moist. NECK: Trachea midline. No JVD. CARDIOVASCULAR: Regular rate and rhythm. RESPIRATORY: No accessory muscle use. Lungs clear to auscultation. Breath sounds equal bilaterally. Right lateral chest tube in place secured to pleura vac. No air leak. GASTROINTESTINAL: Abdomen soft, non-tender, nondistended. + BS. Renteria catheter in place with clear yellow urine. MUSCULOSKELETAL: Extremities without cyanosis, or edema. No obvious deformities. Patient refuses to move legs due to severity of pain with movement. Able to wiggle toes bilaterally. Limited range of motion in right arm due to pain. NEUROLOGICAL: Awake and alert. Normal speech. NEUROLOGICAL: A&O x3 Analgesia for comfort and pain- [place], Morphine IV Neurosurgery consulted, appreciate recommendations HOB elevated > 30 degrees CARDIOVASCULAR: HR = sinus rhythm. HR = 55 - 85 BPM. BP = MAP 90's PMHx: HTN, hyperlipidemia, CAD with stent placement Resumed home lisinopril and Lipitor Follow CMP - Electrolyte protocol in place for replacement. RESPIRATORY: On 2 L nasal cannula Right CT placed to water seal today Continue to monitor closely for hypoxemia. Pulmonary toilet - L&S. Bronchodilators - Duonebs q2H PRN 03/18 CXR -mild right lung base atelectasis and/or infiltrate Labs in AM Chest X-Ray in AM GASTROINTESTINAL: Diet - Regular Bowel regimen - Eliza-colace and MOM. No BM yet RENAL / URINARY: I&O +1353 BUN / creat 22 / 1.08 Renteria - in place to bedside drainage bag ENDOCRINE: BGM - 135 HEMATOLOGY: H&H: 10.9 / 32.2 Continue to monitor for signs and symptoms of bleeding. Transfuse for < 7.0 Monitor patient for any bleeding complications. INFECTIOUS DISEASE: Follow CBC WBC 11.6 PLT 157 Afebrile Administer antipyretics as needed PROPHYLAXIS: GI - Protonix IV DVT - Mechanical VTE with SCDs. Chemical management with Lovenox. Plavix, ASA daily SKIN: Warm / Dry ACTIVITY: Status -BR PT and OT evaluating. CASE MANAGEMENT: Consulted for assist with DC planning. Placement - disposition. Patient will likely need rehabilitation versus SNF placement. Dr. Martínez to assess acetabular fracture and determine plan of care. Patient will likely transfer to Med/Surg floor in a.m. if remains stable overnight Plan of care discussed with RN and patient at bedside. Attestation Patient to be transferred to floor today He will need extensive rehabilitation with extensive friend aggressive physical and occupational therapy The exam, history, and the medical decision-making described in the above note were completed with the assistance of the mid-level provider. I reviewed and agree with the findings presented. I attest that I had a [id number] encounter with the patient on the same day, and personally performed and documented my assessment and findings in the medical record. Critical care time 35 minutes. Preeti Astorga MD Mar 19, 2016 14:36
[2016-03-20] VITALS: BP 150/75; PULSE 67; RESP 16; TEMP 97.4; O2SAT 98
[2016-03-20] MEDS: ACETAMINOPHEN/HYDROcodone 325 MG/5 MG TAB PO PRN ×5 (01:07→21:33)
[2016-03-20] MEDS: MORPHINE SULFATE 4 MG/ML INJ IV PRN ×5 (01:07→21:34)
[2016-03-20] MEDS: CHLORHEXIDINE GLUCONATE 2 % 1 PACK (2 CLOTHS) TOP SCH (03:40)
[2016-03-20] MEDS: LACTULOSE SYRUP 20 GM/30 ML CUP PO PRN (05:21)
--- NOTE | 2016-03-20 06:55 | RADRPT ---
EXAM DATE/TIME: 03/20/2016 04:54 [facility] COMPARISON: CHEST SINGLE AP, March 19, 2016, 5:27. INDICATIONS : Evaluate after traumatic injury. Right side chest tube and rib fractures. MEDICAL HISTORY : None. SURGICAL HISTORY : None. Right side chest tube ENCOUNTER: Subsequent ACUITY: 4 - 6 days PAIN SCORE: 8/10 LOCATION: Bilateral chest FINDINGS: Right chest drainage tube remains projected in the lower lateral chest. There is some thickening of the lateral pleura in the right chest. No pneumothorax seen. Blunting of the costophrenic angle on the left side with associated parenchymal opacities suggests a combination of infiltrate and pleural effusion. The heart is moderately enlarged. CONCLUSION: No pneumothorax seen on the right side. Chest tube in place. Lateral right-sided pleural thickening . Stable infiltrate and/or pleural effusion left lower lateral chest. Bowen Nava MD on March 20, 2016 at 6:52 Board Certified Radiologist. This report was verified electronically.
[2016-03-20 08:00] VITALS: BP 139/64; PULSE 67; RESP 18; TEMP 96.3; O2SAT 98
[2016-03-20] MEDS ORDERED: MAGNESIUM CITRATE SOLN 300 ML BTL PO ONE (09:15)
[2016-03-20] MEDS: DOCUSATE SODIUM 50 MG/SENNA 8.6 MG TAB PO SCH ×2 (09:40→21:00)
[2016-03-20] MEDS: LISINOPRIL 20 MG TAB PO SCH (09:41)
[2016-03-20] MEDS: FAMOTIDINE 20 MG TAB PO SCH ×2 (09:41→21:32)
[2016-03-20] MEDS: MAGNESIUM HYDROXIDE SUSP 30 ML CUP PO SCH (09:41)
[2016-03-20] MEDS: ATORVASTATIN 80 MG TAB PO SCH (09:41)
[2016-03-20 12:39] LABS: MEAN CELL VOLUME 91.7 FL (80.0-100.0); MEAN CORPUSCULAR HEMOGLOBIN 30.5 PG (27.0-34.0); MEAN CORPUSCULAR HGB CONC 33.3 % (32.0-36.0); PLATELET COUNT 150 TH/MM3 (150-450); RED BLOOD COUNT 3.49 MIL/MM3 (4.50-5.90); RED CELL DISTRIBUTION WIDTH 13.2 % (11.6-17.2)
[2016-03-20 12:40] LABS: REVIEW FLAG FINAL
[2016-03-20 13:07] LABS: BICARBONATE 26.5 MEQ/L (21.0-32.0); POTASSIUM 3.8 MEQ/L (3.5-5.1)
--- NOTE | 2016-03-20 13:21 | HHI.PR ---
Subjective Subjective Notes Patient still complains of significant pain. Requesting overhead trapeze for bed Objective Vitals/I&O Vital Signs Date Time Temp Pulse Resp B/P Pulse Ox O2 Delivery O2 Flow Rate FiO2 03/20/16 08:00 96.3 67 18 139/64 98 03/19/16 17:58 Nasal Cannula 2.00 Labs Laboratory Tests Test 03/20/16 11:00 White Blood Count 12.0 Red Blood Count 3.49 Hemoglobin 10.6 Hematocrit 32.0 Mean Corpuscular Volume 91.7 Mean Corpuscular Hemoglobin 30.5 Mean Corpuscular Hemoglobin 33.3 Concent Red Cell Distribution Width 13.2 Platelet Count 150 Mean Platelet Volume 9.7 Sodium Level 139 Potassium Level 3.8 Chloride Level 105 Carbon Dioxide Level 26.5 Anion Gap 8 Blood Urea Nitrogen 17 Creatinine 0.88 Estimat Glomerular Filtration 84 Rate Random Glucose 94 Calcium Level 8.7 Radiology Last Impressions Chest X-Ray 03/20/16 0600 Signed Impressions: Service Date/Time: Sunday, March 20, 2016 04:54 - CONCLUSION: No pneumothorax seen on the right side. Chest tube in place. Lateral right- sided pleural thickening. Stable infiltrate and/or pleural effusion left lower lateral chest. Bowen Nava MD Thoracic Spine CT 03/17/16 1253 Signed Impressions: Service Date/Time: February 13:04 - CONCLUSION: 1. The thoracic vertebral bodies and posterior elements are intact. 2. Right posterior rib fractures involving the fourth through 11th ribs with partial visualization of the known pneumothorax, small effusion and lung infiltrate. 3. Visualization of the known right adrenal mass. Efraín Anderson MD Pelvis X-Ray 03/17/16 1253 Signed Impressions: Service Date/Time: February 12:45 - CONCLUSION: There appears to be a fracture on the right side of the pelvis which may extend into the right acetabulum. Tez Delgado MD Lumbar Spine CT 03/17/16 1253 Signed Impressions: Service Date/Time: February 13:04 - CONCLUSION: 1. Nondisplaced fracture involving the right side of the sacrum. 2. Visualization of a portion of the known right acetabular fracture. 3. The lumbar vertebra and posterior elements are intact. Efraín Anderson MD Head CT 03/17/16 1253 Signed Impressions: Service Date/Time: February 13:04 - CONCLUSION: No acute intracranial hemorrhage. Tez Delgado MD Chest CT 03/17/16 1253 Signed Impressions: Service Date/Time: February 13:09 - CONCLUSION: 1. Multiple right-sided rib fractures with moderate-sized pneumothorax and mediastinal shift to the left. 2. Multiple pleural effusion and patchy infiltrate in the right lung. Efraín Anderson MD Cervical Spine CT 03/17/16 1253 Signed Impressions: Service Date/Time: February 13:08 - CONCLUSION: 1. The cervical spine is intact with no acute fracture or malalignment. 2. Right posterior rib fractures are again noted with partial visualization of the known pneumothorax and continues emphysema. Efraín Anderson MD Abdomen/Pelvis CT 03/17/16 1253 Signed Impressions: Service Date/Time: February 13:04 - CONCLUSION: 1. Moderate size right basilar pneumothorax with small right effusion and multiple rib fractures. 2. Comminuted fracture involving the right acetabulum. 3. Subtle fracture involving the right side of the sacrum. Nondisplaced fracture involving the right inferior pubic rami. 4. Right adrenal mass which is nonspecific but likely represents an adenoma. 5. Moderate diverticulosis. Efraín Anderson MD Shoulder X-Ray 03/17/16 0000 Signed Impressions: Service Date/Time: February 16:21 - CONCLUSION: 1. No acute fracture or malalignment. 2. Subcutaneous emphysema and right-sided chest tube again noted. Efraín Anderson MD Lower Extremity CT 03/17/16 0000 Signed Impressions: Service Date/Time: February 13:09 - CONCLUSION: 1. 3 column acetabular fracture as above Aaron Cordero MD Narrative Exam GENERAL: 75-year-old well-nourished, well developed male lying in bed. SKIN: Warm and dry. HEAD: Normocephalic. EYES: PERRL. ENT: No nasal bleeding or discharge. Mucous membranes pink and moist. NECK: Trachea midline. No JVD. CARDIOVASCULAR: Regular rate and rhythm. RESPIRATORY: No accessory muscle use. Lungs clear to auscultation. Breath sounds equal bilaterally. Right lateral chest tube in place secured to pleura vac, on water seal. GASTROINTESTINAL: Abdomen soft, non-tender, nondistended. + BS. MUSCULOSKELETAL: Extremities without cyanosis, or edema. No obvious deformities. NEUROLOGICAL: Awake and alert. Normal speech. A/P Assessment and Plan INJURIES: RIGHT Rib fx (4-11) RIGHT PTX w/ CT placement RIGHT acetabular fx (non-op) RIGHT inferior pubic rami fx (non-displaced) Sacral fx RIGHT shoulder contusion PMHx: HTN, CAD with stents on Plavix. Diet: Regular, tolerating. Pulmonary: IS, EZPAP, Acapella. 2L NC. Encouraged use. Pain: [place], Morphine 2mg q1. Added Toradol 30mg QID x48H, and Robaxin today. Activity: BR, PT, OT evaluating. (TTWB RLE). Able to sit on the side of the bed yesterday. Patient to wear sling on right when OOB. GI: Pepcid Bowel: Eliza-colace, MOM scheduled. Lactulose 60 x1 yest. No BM yet. Mag citrate. Educated about narcotic related constipation. DVT: SCD, Lovenox 40 QD Today's CXR stable. No PTX. Chest tube dressing saturated and changed at bedside. Daily dressing changes to chest tube site. Ortho cleared for discharge. Plan of care discussed patient at bedside. No family at bedside. Attending Statement The exam, history, and the medical decision-making described in the above note were completed with the assistance of the mid-level provider. I reviewed and agree with the findings presented. I attest that I had a [id number] encounter with the patient on the same day, and personally performed and documented my assessment and findings in the medical record. Wendy Hollis Mar 20, 2016 13:21 Preeti Astorga MD Mar 24, 2016 16:37
[2016-03-20] MEDS: METHOCARBAMOL 500 MG TAB PO SCH ×2 (15:09→21:32)
[2016-03-20] MEDS: KETOROLAC TROMETHAMINE 30 MG/ML (IVP) VIAL IV PUSH SCH ×2 (15:11→21:33)
[2016-03-20] MEDS: ENOXAPARIN SODIUM 40 MG/0.4 ML SYRINGE SQ SCH (15:25)
[2016-03-20 16:00] VITALS: BP 133/72; PULSE 75; RESP 18; TEMP 98.9; O2SAT 100
[2016-03-20 19:00] VITALS: BP 146/75; PULSE 87; RESP 17; TEMP 98.7; O2SAT 96
[2016-03-21] MEDS: LISINOPRIL 20 MG TAB PO SCH ×3 (00:35→21:14)
[2016-03-21 00:42] VITALS: BP 146/69; PULSE 82; RESP 16; TEMP 96.7; O2SAT 98
[2016-03-21] MEDS: CHLORHEXIDINE GLUCONATE 2 % 1 PACK (2 CLOTHS) TOP SCH (04:00)
[2016-03-21] MEDS: METHOCARBAMOL 500 MG TAB PO SCH ×3 (06:38→21:14)
[2016-03-21] MEDS: ACETAMINOPHEN/HYDROcodone 325 MG/5 MG TAB PO PRN ×3 (06:39→16:28)
[2016-03-21] MEDS: KETOROLAC TROMETHAMINE 30 MG/ML (IVP) VIAL IV PUSH SCH ×3 (06:40→21:14)
[2016-03-21] MEDS: MORPHINE SULFATE 4 MG/ML INJ IV PRN ×2 (06:40→11:20)
--- NOTE | 2016-03-21 06:53 | RADRPT ---
EXAM DATE/TIME: 03/21/2016 05:27 [facility] COMPARISON: CHEST SINGLE AP, March 20, 2016, 4:54. INDICATIONS : Short of breath, evaluate right side chest tube MEDICAL HISTORY : pneumothorax, rib fractures SURGICAL HISTORY : chest tube, hip ENCOUNTER: Subsequent ACUITY: 1 week PAIN SCORE: 8/10 LOCATION: Bilateral chest FINDINGS: Right chest tube remains in place. No pneumothorax. Mild atelectasis in the right lung base. Left damari g is clear. Heart size is stable. No pleural effusions. Bony structures are stable. CONCLUSION: Right chest tube in place. No pneumothorax. Tez Delgado MD on March 21, 2016 at 6:51 Board Certified Radiologist. This report was verified electronically.
[2016-03-21 08:00] VITALS: BP 149/71; PULSE 82; RESP 18; TEMP 96.4; O2SAT 99
[2016-03-21] MEDS: FAMOTIDINE 20 MG TAB PO SCH ×2 (09:47→21:14)
[2016-03-21] MEDS: DOCUSATE SODIUM 50 MG/SENNA 8.6 MG TAB PO SCH ×2 (09:47→21:11)
[2016-03-21] MEDS: ATORVASTATIN 80 MG TAB PO SCH (09:47)
[2016-03-21] MEDS: ENOXAPARIN SODIUM 40 MG/0.4 ML SYRINGE SQ SCH (11:18)
[2016-03-21 12:00] VITALS: BP 146/63; PULSE 80; RESP 18; TEMP 97.7; O2SAT 100
--- NOTE | 2016-03-21 12:03 | HHI.PR ---
Subjective Subjective Notes PTD: 4 Patient states he is doing much better than yesterday. He has developed a plan to where he will take his pain medicine and then participate in PT and OT. He states that yesterday he got out of bed in a chair , and was able to stand for a period of time. Objective Vitals/I&O Vital Signs Date Time Temp Pulse Resp B/P Pulse Ox O2 Delivery O2 Flow Rate FiO2 03/21/16 08:00 96.4 82 18 149/71 99 03/21/16 08:00 Room Air 03/20/16 21:20 2.00 Labs Laboratory Tests Test 03/17/16 03/18/16 03/18/16 03/20/16 12:58 03:55 11:33 11:00 Bedside Hemoglobin 12.6 G/DL Bedside Hematocrit 37.0 % Platelet Estimate NORMAL Platelet Morphology Comment NORMAL Ovalocytes Prothrombin Time 11.2 SEC Prothromb Time International 1.0 RATIO Ratio Activated Partial 22.0 SEC Thromboplast Time Bedside Sodium 145 MMOL/L Bedside Potassium 3.4 MMOL/L Bedside Chloride 106 MMOL/L Bedside Blood Urea Nitrogen 26 MG/DL Bedside Creatinine 1.0 MG/DL Bedside Glucose 137 MG/DL Blood Type A POSITIVE Antibody Screen NEGATIVE Neutrophils (%) (Auto) 82.8 % Lymphocytes (%) (Auto) 6.6 % Monocytes (%) (Auto) 9.8 % Eosinophils (%) (Auto) 0.6 % Basophils (%) (Auto) 0.2 % Neutrophils # (Auto) 9.6 TH/MM3 Lymphocytes # (Auto) 0.8 TH/MM3 Monocytes # (Auto) 1.1 TH/MM3 Eosinophils # (Auto) 0.1 TH/MM3 Basophils # (Auto) 0.0 TH/MM3 CBC Comment DIFF FINAL Differential Comment Nasal Screen MRSA (PCR) NEGATIVE White Blood Count 12.0 TH/MM3 Red Blood Count 3.49 MIL/MM3 Hemoglobin 10.6 GM/DL Hematocrit 32.0 % Mean Corpuscular Volume 91.7 FL Mean Corpuscular Hemoglobin 30.5 PG Mean Corpuscular Hemoglobin 33.3 % Concent Red Cell Distribution Width 13.2 % Platelet Count 150 TH/MM3 Mean Platelet Volume 9.7 FL Sodium Level 139 MEQ/L Potassium Level 3.8 MEQ/L Chloride Level 105 MEQ/L Carbon Dioxide Level 26.5 MEQ/L Anion Gap 8 MEQ/L Blood Urea Nitrogen 17 MG/DL Creatinine 0.88 MG/DL Estimat Glomerular Filtration 84 ML/MIN Rate Random Glucose 94 MG/DL Calcium Level 8.7 MG/DL Radiology Last Impressions Chest X-Ray 03/20/16 0600 Signed Impressions: Service Date/Time: Sunday, March 20, 2016 04:54 - CONCLUSION: No pneumothorax seen on the right side. Chest tube in place. Lateral right- sided pleural thickening. Stable infiltrate and/or pleural effusion left lower lateral chest. Bowen Nava MD Thoracic Spine CT 03/17/161252 Signed Impressions: Service Date/Time: February 13:04 - CONCLUSION: 1. The thoracic vertebral bodies and posterior elements are intact. 2. Right posterior rib fractures involving the fourth through 11th ribs with partial visualization of the known pneumothorax, small effusion and lung infiltrate. 3. Visualization of the known right adrenal mass. Efraín Anderson MD Pelvis X-Ray 03/17/161252 Signed Impressions: Service Date/Time: February 12:45 - CONCLUSION: There appears to be a fracture on the right side of the pelvis which may extend into the right acetabulum. Tez Delgado MD Lumbar Spine CT 03/17/161252 Signed Impressions: Service Date/Time: February 13:04 - CONCLUSION: 1. Nondisplaced fracture involving the right side of the sacrum. 2. Visualization of a portion of the known right acetabular fracture. 3. The lumbar vertebra and posterior elements are intact. Efraín Anderson MD Head CT 03/17/161252 Signed Impressions: Service Date/Time: February 13:04 - CONCLUSION: No acute intracranial hemorrhage. Tez Delgado MD Chest CT 03/17/161252 Signed Impressions: Service Date/Time: February 13:09 - CONCLUSION: 1. Multiple right-sided rib fractures with moderate-sized pneumothorax and mediastinal shift to the left. 2. Multiple pleural effusion and patchy infiltrate in the right lung. Efraín Anderson MD Cervical Spine CT 03/17/161252 Signed Impressions: Service Date/Time: February 13:08 - CONCLUSION: 1. The cervical spine is intact with no acute fracture or malalignment. 2. Right posterior rib fractures are again noted with partial visualization of the known pneumothorax and continues emphysema. Efraín Anderson MD Abdomen/Pelvis CT 03/17/16 1253 Signed Impressions: Service Date/Time: February 13:04 - CONCLUSION: 1. Moderate size right basilar pneumothorax with small right effusion and multiple rib fractures. 2. Comminuted fracture involving the right acetabulum. 3. Subtle fracture involving the right side of the sacrum. Nondisplaced fracture involving the right inferior pubic rami. 4. Right adrenal mass which is nonspecific but likely represents an adenoma. 5. Moderate diverticulosis. Efraín Anderson MD Shoulder X-Ray 03/17/16 0000 Signed Impressions: Service Date/Time: February 16:21 - CONCLUSION: 1. No acute fracture or malalignment. 2. Subcutaneous emphysema and right-sided chest tube again noted. Efraín Anderson MD Lower Extremity CT 03/17/16 0000 Signed Impressions: Service Date/Time: February 13:09 - CONCLUSION: 1. 3 column acetabular fracture as above Aaron Cordero MD Narrative Exam GENERAL: This is a 75-year-old male sitting in bed in no distress. SKIN: Warm and dry. HEAD: Atraumatic. Normocephalic. EYES: PERRLA ENT: No nasal bleeding or discharge. Mucous membranes pink and moist. NECK: Trachea midline. No JVD. CARDIOVASCULAR: Regular rate and rhythm. RESPIRATORY: RIGHT CT to Pleur-evac drainage system to water seal. No accessory muscle use. Lungs are clear to auscultation. Breath sounds equal bilaterally. No distress or dyspnea. GASTROINTESTINAL: BS + x 4 quads. Abdomen soft, non-tender, nondistended. MUSCULOSKELETAL: Extremities without cyanosis, or edema. + peripheral pulses x 4 extremities. Warm with good capillary refill and sensation. MAEW. NEUROLOGICAL: Awake and alert. Normal speech and pattern. A/P Problem List: (1) Rib fractures (2) Pelvic fracture (3) Traumatic pneumothorax (4) Fall Assessment and Plan [place]: This is a 75-year-old gentleman who fell approximately 15 feet from a ladder while cutting branches. He landed on his RIGHT side. No LOC. GCS = 15. His initial complaint was of right-sided hip pain PMHx: HTN, CAD with stents on Plavix. INJURIES: RIGHT shoulder contusion RIGHT Rib fx (4-11) RIGHT PTX RIGHT acetabular fx (non-op) RIGHT inferior pubic rami fx (non-displaced) Sacral fx Consults: Orthopedics, Neurosurgery. Diet: Regular diet. Tolerating po diet. Encourage good po intake with each meal. Pulmonary: Encourage good pulmonary toileting. IS and acapella at bedside and pt encouraged to use. Rationale for use explained to patient, and verbalized understanding. EZ pap q 4 hrs. PAIN Management: [place] po. Morphine IV PRN for breakthrough pain. Toradol x 2 days total.. Robaxin po. Activity: OOB. (TTWB Bilat LE) PT and OT ordered. GI prophylaxis: Pepcid po. Bowel regimen: Eliza-colace and MOM. BM x 7 post magnesium citrate yesterday. DVT prophylaxis: Mechanical VTE with SCDs. Chemical management with Lovenox 40 q day.. DC Planning: Case management consulted for assistance with final discharge disposition. [facility] is following the patient for possible admission. Emotional support provided to patient and family at bedside and plan of care discussed. Discussed with RN at bedside. Patient is hemodynamically stable and being managed on the med/surg floor. Attending Statement The exam, history, and the medical decision-making described in the above note were completed with the assistance of the mid-level provider. I reviewed and agree with the findings presented. I attest that I had a [id number] encounter with the patient on the same day, and personally performed and documented my assessment and findings in the medical record. Problem Qualifiers (1) Rib fractures: Qualified Code: S22.41XA - Closed fracture of multiple ribs of right side, initial encounter (2) Pelvic fracture: Qualified Code: S32.511A - Closed fracture of superior ramus of right pubis, initial encounter (3) Traumatic pneumothorax: Qualified Code: S27.0XXA - Traumatic pneumothorax, initial encounter (4) Fall: Qualified Code: W19.XXXA - Fall, initial encounter Shea Duque Mar 21, 2016 12:03 Preeti Astorga MD Mar 24, 2016 16:51
[2016-03-21 16:00] VITALS: BP 98/60; PULSE 111; RESP 18; TEMP 95.7; O2SAT 98
[2016-03-21 20:55] VITALS: BP 118/60; PULSE 59; RESP 16; TEMP 96.4; O2SAT 100
[2016-03-21] MEDS: SODIUM CHLORIDE 0.9% FLUSH 5 ML FLUSH IVF PRN (21:14)
[2016-03-21 23:50] VITALS: BP 121/58; PULSE 64; RESP 16; TEMP 96.4; O2SAT 98
[2016-03-22] MEDS: ACETAMINOPHEN/HYDROcodone 325 MG/5 MG TAB PO PRN ×5 (03:11→22:17)
[2016-03-22 03:30] VITALS: BP 169/78; PULSE 100; RESP 17; TEMP 97.2; O2SAT 95
[2016-03-22] MEDS: CHLORHEXIDINE GLUCONATE 2 % 1 PACK (2 CLOTHS) TOP SCH (03:49)
[2016-03-22] MEDS: KETOROLAC TROMETHAMINE 30 MG/ML (IVP) VIAL IV PUSH SCH ×2 (05:14→13:38)
[2016-03-22] MEDS: METHOCARBAMOL 500 MG TAB PO SCH ×3 (05:14→20:17)
[2016-03-22 08:00] VITALS: BP 140/63; PULSE 84; RESP 18; TEMP 99.2; O2SAT 95
[2016-03-22] MEDS: DOCUSATE SODIUM 50 MG/SENNA 8.6 MG TAB PO SCH ×2 (09:11→20:18)
[2016-03-22] MEDS: FAMOTIDINE 20 MG TAB PO SCH ×2 (09:12→20:17)
[2016-03-22] MEDS: LISINOPRIL 20 MG TAB PO SCH ×2 (09:12→20:17)
[2016-03-22] MEDS: ATORVASTATIN 80 MG TAB PO SCH (09:12)
[2016-03-22] MEDS: MAGNESIUM HYDROXIDE SUSP 30 ML CUP PO SCH (09:13)
[2016-03-22] MEDS: SODIUM CHLORIDE 0.9% FLUSH 5 ML FLUSH IVF PRN ×2 (09:32→13:43)
--- NOTE | 2016-03-22 10:48 | HHI.PR ---
Subjective Subjective Notes PTD: 5 Patient is OOB and sitting in a chair. Complains of pain and discomfort to right shoulder and chest area. Objective Vitals/I&O Vital Signs Date Time Temp Pulse Resp B/P Pulse Ox O2 Delivery O2 Flow Rate FiO2 03/22/16 08:00 99.2 84 18 140/63 95 03/21/16 08:00 Room Air 03/20/16 21:20 2.00 Labs Laboratory Tests Test 03/18/16 03/18/16 03/20/16 03:55 11:33 11:00 Neutrophils (%) (Auto) 82.8 % Lymphocytes (%) (Auto) 6.6 % Monocytes (%) (Auto) 9.8 % Eosinophils (%) (Auto) 0.6 % Basophils (%) (Auto) 0.2 % Neutrophils # (Auto) 9.6 TH/MM3 Lymphocytes # (Auto) 0.8 TH/MM3 Monocytes # (Auto) 1.1 TH/MM3 Eosinophils # (Auto) 0.1 TH/MM3 Basophils # (Auto) 0.0 TH/MM3 CBC Comment DIFF FINAL Differential Comment Nasal Screen MRSA (PCR) NEGATIVE White Blood Count 12.0 TH/MM3 Red Blood Count 3.49 MIL/MM3 Hemoglobin 10.6 GM/DL Hematocrit 32.0 % Mean Corpuscular Volume 91.7 FL Mean Corpuscular Hemoglobin 30.5 PG Mean Corpuscular Hemoglobin 33.3 % Concent Red Cell Distribution Width 13.2 % Platelet Count 150 TH/MM3 Mean Platelet Volume 9.7 FL Sodium Level 139 MEQ/L Potassium Level 3.8 MEQ/L Chloride Level 105 MEQ/L Carbon Dioxide Level 26.5 MEQ/L Anion Gap 8 MEQ/L Blood Urea Nitrogen 17 MG/DL Creatinine 0.88 MG/DL Estimat Glomerular Filtration 84 ML/MIN Rate Random Glucose 94 MG/DL Calcium Level 8.7 MG/DL Radiology Last Impressions Chest X-Ray 03/20/16 0600 Signed Impressions: Service Date/Time: Sunday, March 20, 2016 04:54 - CONCLUSION: No pneumothorax seen on the right side. Chest tube in place. Lateral right- sided pleural thickening. Stable infiltrate and/or pleural effusion left lower lateral chest. Bowen Nava MD Thoracic Spine CT 03/17/16 1253 Signed Impressions: Service Date/Time: February 13:04 - CONCLUSION: 1. The thoracic vertebral bodies and posterior elements are intact. 2. Right posterior rib fractures involving the fourth through 11th ribs with partial visualization of the known pneumothorax, small effusion and lung infiltrate. 3. Visualization of the known right adrenal mass. Efraín Anderson MD Pelvis X-Ray 03/17/161252 Signed Impressions: Service Date/Time: February 12:45 - CONCLUSION: There appears to be a fracture on the right side of the pelvis which may extend into the right acetabulum. Tez Delgado MD Lumbar Spine CT 03/17/16 125 Signed Impressions: Service Date/Time: February 13:04 - CONCLUSION: 1. Nondisplaced fracture involving the right side of the sacrum. 2. Visualization of a portion of the known right acetabular fracture. 3. The lumbar vertebra and posterior elements are intact. Efraín Anderson MD Head CT 03/17/161252 Signed Impressions: Service Date/Time: February 13:04 - CONCLUSION: No acute intracranial hemorrhage. Tez Delgado MD Chest CT 03/17/161252 Signed Impressions: Service Date/Time: February 13:09 - CONCLUSION: 1. Multiple right-sided rib fractures with moderate-sized pneumothorax and mediastinal shift to the left. 2. Multiple pleural effusion and patchy infiltrate in the right lung. Efraín Anderson MD Cervical Spine CT 03/17/161252 Signed Impressions: Service Date/Time: February 13:08 - CONCLUSION: 1. The cervical spine is intact with no acute fracture or malalignment. 2. Right posterior rib fractures are again noted with partial visualization of the known pneumothorax and continues emphysema. Efraín Anderson MD Abdomen/Pelvis CT 03/17/16 125 Signed Impressions: Service Date/Time: February 13:04 - CONCLUSION: 1. Moderate size right basilar pneumothorax with small right effusion and multiple rib fractures. 2. Comminuted fracture involving the right acetabulum. 3. Subtle fracture involving the right side of the sacrum. Nondisplaced fracture involving the right inferior pubic rami. 4. Right adrenal mass which is nonspecific but likely represents an adenoma. 5. Moderate diverticulosis. Efraín Anderson MD Shoulder X-Ray 03/17/16 0000 Signed Impressions: Service Date/Time: February 16:21 - CONCLUSION: 1. No acute fracture or malalignment. 2. Subcutaneous emphysema and right-sided chest tube again noted. Efraín Anderson MD Lower Extremity CT 03/17/16 0000 Signed Impressions: Service Date/Time: February 13:09 - CONCLUSION: 1. 3 column acetabular fracture as above Aaron Cordero MD Narrative Exam GENERAL: This is a 75-year-old male sitting up in a chair. SKIN: Warm and dry. HEAD: Atraumatic. Normocephalic. EYES: PERRLA ENT: No nasal bleeding or discharge. Mucous membranes pink and moist. NECK: Trachea midline. No JVD. CARDIOVASCULAR: Regular rate and rhythm. RESPIRATORY: RIGHT CT to Pleur-evac drainage system to water seal. No accessory muscle use. Lungs are clear to auscultation. Breath sounds equal bilaterally. No distress or dyspnea. GASTROINTESTINAL: BS + x 4 quads. Abdomen soft, non-tender, nondistended. MUSCULOSKELETAL: Extremities without cyanosis, or edema. + peripheral pulses x 4 extremities. Warm with good capillary refill and sensation. MAEW. NEUROLOGICAL: Awake and alert. Normal speech and pattern. A/P Problem List: (1) Rib fractures (2) Pelvic fracture (3) Traumatic pneumothorax (4) Fall Assessment and Plan [place]: This is a 75-year-old gentleman who fell approximately 15 feet from a ladder while cutting branches. He landed on his RIGHT side. No LOC. GCS = 15. His initial complaint was of right-sided hip pain PMHx: HTN, CAD with stents on Plavix. INJURIES: RIGHT shoulder contusion RIGHT Rib fx (4-11) RIGHT PTX RIGHT acetabular fx (non-op) RIGHT inferior pubic rami fx (non-displaced) Sacral fx Consults: Orthopedics, Neurosurgery. Diet: Regular diet. Tolerating po diet. Encourage good po intake with each meal. Pulmonary: Encourage good pulmonary toileting. IS and acapella at bedside and pt encouraged to use. Rationale for use explained to patient, and verbalized understanding. EZ pap q 4 hrs. Chest tube = 85 ml/24h. Plan for chest tube removal today. 1430: Plan for chest tube removal at the bedside, however patient had 200 mL's output from his chest tube since 7 AM. Will refrain from removing CT at this time. Reevaluate tomorrow. PAIN Management: [place] po. Morphine IV PRN for breakthrough pain. Toradol x 2 days total.. Robaxin po. Activity: OOB. (TTWB Bilat LE) PT and OT ordered. GI prophylaxis: Pepcid po. Bowel regimen: Eliza-colace and MOM. BM x 2. DVT prophylaxis: Mechanical VTE with SCDs. Chemical management with Lovenox 40 q day.. DC Planning: Case management consulted for assistance with final discharge disposition. [facility] is following the patient for possible admission. Emotional support provided to patient and family at bedside and plan of care discussed. Discussed with RN at bedside. Patient is hemodynamically stable and being managed on the med/surg floor. The exam, history, and the medical decision-making described in the above note were completed with the assistance of the mid-level provider. I reviewed and agree with the findings presented. I attest that I had a [id number] encounter with the patient on the same day, and personally performed and documented my assessment and findings in the medical record. Problem Qualifiers (1) Rib fractures: Qualified Code: S22.41XA - Closed fracture of multiple ribs of right side, initial encounter (2) Pelvic fracture: Qualified Code: S32.511A - Closed fracture of superior ramus of right pubis, initial encounter (3) Traumatic pneumothorax: Qualified Code: S27.0XXA - Traumatic pneumothorax, initial encounter (4) Fall: Qualified Code: W19.XXXA - Fall, initial encounter Shea Duque Mar 22, 2016 10:48 Charles Dallas MD Mar 22, 2016 19:56
[2016-03-22] MEDS: ENOXAPARIN SODIUM 40 MG/0.4 ML SYRINGE SQ SCH (11:00)
[2016-03-22 12:00] VITALS: BP 154/70; PULSE 83; RESP 18; TEMP 98.8; O2SAT 95
[2016-03-22 16:00] VITALS: BP 141/65; PULSE 82; RESP 18; TEMP 99.1; O2SAT 18
[2016-03-22 20:10] VITALS: BP 120/58; PULSE 85; RESP 18; TEMP 96.1; O2SAT 96
[2016-03-23] VITALS (7 sets, daily range): BP systolic 98–125; BP diastolic 55–61; PULSE 68–78; RESP 18–20; TEMP 95.2–98.1; O2SAT 93–98
[2016-03-23] MEDS: CHLORHEXIDINE GLUCONATE 2 % 1 PACK (2 CLOTHS) TOP SCH ×2 (02:35→19:36)
[2016-03-23] MEDS: ACETAMINOPHEN/HYDROcodone 325 MG/5 MG TAB PO PRN ×5 (02:41→22:38)
[2016-03-23] MEDS: METHOCARBAMOL 500 MG TAB PO SCH ×3 (06:07→21:28)
--- NOTE | 2016-03-23 09:35 | RADRPT ---
EXAM DATE/TIME: 03/23/2016 08:49 [facility] COMPARISON: CT THORAX W CONTRAST, March 17, 2016, 13:09. CHEST SINGLE AP, March 21, 2016, 5:27. INDICATIONS : Short of breath. Cough. MEDICAL HISTORY : Pneumothorax. Rib fractures. SURGICAL HISTORY : Chest tube, right. ENCOUNTER: Subsequent ACUITY: 1 week PAIN SCORE: 3/10 LOCATION: Right chest FINDINGS: Slightly offset fracture of right rib #4 posteriorly is appreciated. Right chest tube is in place lat erally in the lung base with some atelectatic changes and minimal pleural thickening laterally. No de finitive pneumothorax is appreciated. CONCLUSION: Right chest tube in place with right fourth rib fracture. No evidence of pneumothorax Zack Ortiz MD on March 23, 2016 at 9:31 Board Certified Radiologist. This report was verified electronically.
[2016-03-23] MEDS: MAGNESIUM HYDROXIDE SUSP 30 ML CUP PO SCH (10:34)
[2016-03-23] MEDS: FAMOTIDINE 20 MG TAB PO SCH ×2 (10:35→20:11)
[2016-03-23] MEDS: ATORVASTATIN 80 MG TAB PO SCH (10:35)
[2016-03-23] MEDS: LISINOPRIL 20 MG TAB PO SCH ×2 (10:35→20:11)
[2016-03-23] MEDS: DOCUSATE SODIUM 50 MG/SENNA 8.6 MG TAB PO SCH ×2 (10:35→20:11)
[2016-03-23] MEDS: ENOXAPARIN SODIUM 40 MG/0.4 ML SYRINGE SQ SCH (10:42)
--- NOTE | 2016-03-23 14:53 | HHI.PR ---
Subjective Subjective Notes CT drained 400mL over the last 24 hours Patient reports he has been more mobile. No complaints. Objective Vitals/I&O Vital Signs Date Time Temp Pulse Resp B/P Pulse Ox O2 Delivery O2 Flow Rate FiO2 03/23/16 12:00 95.2 78 20 105/55 97 03/22/16 08:00 Nasal Cannula 2.00 Labs Laboratory Tests Test 03/20/16 11:00 White Blood Count 12.0 TH/MM3 Red Blood Count 3.49 MIL/MM3 Hemoglobin 10.6 GM/DL Hematocrit 32.0 % Mean Corpuscular Volume 91.7 FL Mean Corpuscular Hemoglobin 30.5 PG Mean Corpuscular Hemoglobin 33.3 % Concent Red Cell Distribution Width 13.2 % Platelet Count 150 TH/MM3 Mean Platelet Volume 9.7 FL Sodium Level 139 MEQ/L Potassium Level 3.8 MEQ/L Chloride Level 105 MEQ/L Carbon Dioxide Level 26.5 MEQ/L Anion Gap 8 MEQ/L Blood Urea Nitrogen 17 MG/DL Creatinine 0.88 MG/DL Estimat Glomerular Filtration 84 ML/MIN Rate Random Glucose 94 MG/DL Calcium Level 8.7 MG/DL Radiology Last Impressions Chest X-Ray 03/20/16 0600 Signed Impressions: Service Date/Time: Sunday, March 20, 2016 04:54 - CONCLUSION: No pneumothorax seen on the right side. Chest tube in place. Lateral right- sided pleural thickening. Stable infiltrate and/or pleural effusion left lower lateral chest. Bowen Nava MD Thoracic Spine CT 03/17/16 1253 Signed Impressions: Service Date/Time: February 13:04 - CONCLUSION: 1. The thoracic vertebral bodies and posterior elements are intact. 2. Right posterior rib fractures involving the fourth through 11th ribs with partial visualization of the known pneumothorax, small effusion and lung infiltrate. 3. Visualization of the known right adrenal mass. Efraín Anderson MD Pelvis X-Ray 03/17/16 1253 Signed Impressions: Service Date/Time: February 12:45 - CONCLUSION: There appears to be a fracture on the right side of the pelvis which may extend into the right acetabulum. Tez Delgado MD Lumbar Spine CT 03/17/16 1253 Signed Impressions: Service Date/Time: February 13:04 - CONCLUSION: 1. Nondisplaced fracture involving the right side of the sacrum. 2. Visualization of a portion of the known right acetabular fracture. 3. The lumbar vertebra and posterior elements are intact. Efraín Anderson MD Head CT 03/17/16 1253 Signed Impressions: Service Date/Time: February 13:04 - CONCLUSION: No acute intracranial hemorrhage. Tez Delgado MD Chest CT 03/17/16 1253 Signed Impressions: Service Date/Time: February 13:09 - CONCLUSION: 1. Multiple right-sided rib fractures with moderate-sized pneumothorax and mediastinal shift to the left. 2. Multiple pleural effusion and patchy infiltrate in the right lung. Efraín Anderson MD Cervical Spine CT 03/17/16 1253 Signed Impressions: Service Date/Time: February 13:08 - CONCLUSION: 1. The cervical spine is intact with no acute fracture or malalignment. 2. Right posterior rib fractures are again noted with partial visualization of the known pneumothorax and continues emphysema. Efraín Anderson MD Abdomen/Pelvis CT 03/17/16 1253 Signed Impressions: Service Date/Time: February 13:04 - CONCLUSION: 1. Moderate size right basilar pneumothorax with small right effusion and multiple rib fractures. 2. Comminuted fracture involving the right acetabulum. 3. Subtle fracture involving the right side of the sacrum. Nondisplaced fracture involving the right inferior pubic rami. 4. Right adrenal mass which is nonspecific but likely represents an adenoma. 5. Moderate diverticulosis. Efraín Anderson MD Shoulder X-Ray 03/17/16 0000 Signed Impressions: Service Date/Time: February 16:21 - CONCLUSION: 1. No acute fracture or malalignment. 2. Subcutaneous emphysema and right-sided chest tube again noted. Efraín Anderson MD Lower Extremity CT 03/17/16 0000 Signed Impressions: Service Date/Time: February 13:09 - CONCLUSION: 1. 3 column acetabular fracture as above Aaron Cordero MD Narrative Exam GENERAL: 75-year-old well-nourished, well developed male OOB in chair. SKIN: Warm and dry. HEAD: Normocephalic. CARDIOVASCULAR: Regular rate and rhythm. RESPIRATORY: Lungs clear and diminished to auscultation. Breath sounds equal bilaterally. Right lateral chest tube in place secured to pleura-vac, on water seal. GASTROINTESTINAL: Abdomen soft, non-tender, nondistended. + BS. MUSCULOSKELETAL: Extremities without cyanosis, or edema. No obvious deformities. NEUROLOGICAL: Awake and alert. Normal speech. A/P Problem List: (1) Rib fractures (2) Pelvic fracture (3) Traumatic pneumothorax (4) Fall Assessment and Plan INJURIES: RIGHT Rib fx (4-11) RIGHT PTX w/ CT placement RIGHT acetabular fx (non-op) RIGHT inferior pubic rami fx (non-displaced) Sacral fx RIGHT shoulder contusion PMHx: HTN, CAD with stents on Plavix. Diet: Regular, tolerating. Pulmonary: IS, EZPAP, Acapella. Encouraged use. Pain: [place], Robaxin. Pain controlled. Discontinued Morphine. Activity: BR, PT, OT evaluating. (TTWB RLE). OOB in chair today. Patient to wear sling on right when OOB. GI: Pepcid Bowel: Eliza-colace, MOM scheduled. LBM 03/21. DVT: SCD, Lovenox 40 QD Today's CXR stable. Daily dressing changes to chest tube site. Plan to DC CT when drainage decreases, hopefully tomorrow. RN to update patient allergies. Ortho cleared for discharge. CM consulted for discharge planning. [facility] following. Plan to DC 1-2 days. Plan of care discussed patient at bedside. Attending Statement Right chest tube drainage about 400 cc In next 24 hours probably drainage. An and patient will have the chest tube removed In the face of severe rib fractures and associated injuries this gentleman will require inpatient rehabilitation and she'll be transferred to inpatient rehabilitation unit as soon as possible Arrangements are being made the case management for such transfer The exam, history, and the medical decision-making described in the above note were completed with the assistance of the mid-level provider. I reviewed and agree with the findings presented. I attest that I had a [id number] encounter with the patient on the same day, and personally performed and documented my assessment and findings in the medical record. Problem Qualifiers (1) Rib fractures: Qualified Code: S22.41XA - Closed fracture of multiple ribs of right side, initial encounter (2) Pelvic fracture: Qualified Code: S32.511A - Closed fracture of superior ramus of right pubis, initial encounter (3) Traumatic pneumothorax: Qualified Code: S27.0XXA - Traumatic pneumothorax, initial encounter (4) Fall: Qualified Code: W19.XXXA - Fall, initial encounter Wendy Hollis Mar 23, 2016 14:53 Preeti Astorga MD Mar 24, 2016 17:00
[2016-03-23] MEDS: LACTULOSE SYRUP 20 GM/30 ML CUP PO PRN (22:40)
[2016-03-24] MEDS: ACETAMINOPHEN/HYDROcodone 325 MG/5 MG TAB PO PRN ×3 (03:02→11:32)
[2016-03-24] MEDS: METHOCARBAMOL 500 MG TAB PO SCH ×2 (05:03→14:13)
[2016-03-24] MEDS: ATORVASTATIN 80 MG TAB PO SCH (07:30)
[2016-03-24] MEDS: FAMOTIDINE 20 MG TAB PO SCH (07:30)
[2016-03-24] MEDS: LISINOPRIL 20 MG TAB PO SCH (07:30)
[2016-03-24] MEDS: DOCUSATE SODIUM 50 MG/SENNA 8.6 MG TAB PO SCH (07:30)
[2016-03-24] MEDS: MAGNESIUM HYDROXIDE SUSP 30 ML CUP PO SCH (07:31)
[2016-03-24 07:35] VITALS: BP 120/55; PULSE 95; RESP 20; TEMP 96.7; O2SAT 100
--- NOTE | 2016-03-24 11:29 | RADRPT ---
EXAM DATE/TIME: 03/24/2016 11:01 [facility] COMPARISON: CHEST SINGLE AP, March 23, 2016, 8:49. INDICATIONS : Post chest tube removal. MEDICAL HISTORY : Pneumothorax. Rib fractures. SURGICAL HISTORY : Chest tube, right. ENCOUNTER: Subsequent ACUITY: 1 week PAIN SCORE: 4/10 LOCATION: Right chest FINDINGS: AP portable upright view of the chest demonstrates interval removal of the right-sided chest tube at the site of minimally displaced rib fractures. The lungs appear mildly hypoinflated. There is a small right apical pneumothorax present this appears decreased in size as compared to the prior exam. Pers istent bibasilar airspace consolidation. Heart size is is at the upper limits of normal. CONCLUSION: Interval removal of a right-sided chest tube. Small apical pneumothorax which is decr eased in size as compared to the prior exams. Bibasilar air space atelectasis versus consolidation. Brenda Carrillo MD on March 24, 2016 at 11:27 Board Certified Radiologist. This report was verified electronically.
[2016-03-24] MEDS: ENOXAPARIN SODIUM 40 MG/0.4 ML SYRINGE SQ SCH (11:32)
[2016-03-24] MEDS ORDERED: METH500T3 PO (11:42)
[2016-03-24] MEDS ORDERED: IPRASOL NEB (11:42)
[2016-03-24] MEDS ORDERED: MILKSUS PO (11:42)
[2016-03-24] MEDS ORDERED: HYDR-3516 PO (11:42)
[2016-03-24] MEDS ORDERED: FAMO20TA2 PO (11:42)
[2016-03-24] MEDS ORDERED: SENN1TAB PO (11:42)
[2016-03-24 12:00] VITALS: BP 134/63; PULSE 95; RESP 20; TEMP 96; O2SAT 96
--- NOTE | 2016-03-24 12:09 | HHI.DS ---
Discharge Summary Admission Date Mar 17, 2016 at 13:30 Discharge Date: Mar 24, 2016 Admitting Diagnosis fall, traumatic pneumothorax, pelvic fracture, rib fracture (1) Rib fractures (2) Pelvic fracture (3) Traumatic pneumothorax (4) Fall Brief History S/P trauma: Fall from ladder at 15ft. CBC/BMP: 03/20/16 1100 03/20/16 1100 Imaging Last Impressions Chest X-Ray 03/23/16 0000 Signed Impressions: Service Date/Time: Wednesday, March 23, 2016 08:49 - CONCLUSION: Right chest tube in place with right fourth rib fracture. No evidence of pneumothorax Zack Ortiz MD Thoracic Spine CT 03/17/16 1253 Signed Impressions: Service Date/Time: February 13:04 - CONCLUSION: 1. The thoracic vertebral bodies and posterior elements are intact. 2. Right posterior rib fractures involving the fourth through 11th ribs with partial visualization of the known pneumothorax, small effusion and lung infiltrate. 3. Visualization of the known right adrenal mass. Efraín Anderson MD Pelvis X-Ray 03/17/16 1253 Signed Impressions: Service Date/Time: February 12:45 - CONCLUSION: There appears to be a fracture on the right side of the pelvis which may extend into the right acetabulum. Tez Delgado MD Lumbar Spine CT 03/17/16 1253 Signed Impressions: Service Date/Time: February 13:04 - CONCLUSION: 1. Nondisplaced fracture involving the right side of the sacrum. 2. Visualization of a portion of the known right acetabular fracture. 3. The lumbar vertebra and posterior elements are intact. Efraín Anderson MD Head CT 03/17/16 1253 Signed Impressions: Service Date/Time: February 13:04 - CONCLUSION: No acute intracranial hemorrhage. Tez Delgado MD Chest CT 03/17/16 1253 Signed Impressions: Service Date/Time: February 13:09 - CONCLUSION: 1. Multiple right-sided rib fractures with moderate-sized pneumothorax and mediastinal shift to the left. 2. Multiple pleural effusion and patchy infiltrate in the right lung. Efraín Anderson MD Cervical Spine CT 03/17/16 1253 Signed Impressions: Service Date/Time: February 13:08 - CONCLUSION: 1. The cervical spine is intact with no acute fracture or malalignment. 2. Right posterior rib fractures are again noted with partial visualization of the known pneumothorax and continues emphysema. Efraín Anderson MD Abdomen/Pelvis CT 03/17/16 1253 Signed Impressions: Service Date/Time: February 13:04 - CONCLUSION: 1. Moderate size right basilar pneumothorax with small right effusion and multiple rib fractures. 2. Comminuted fracture involving the right acetabulum. 3. Subtle fracture involving the right side of the sacrum. Nondisplaced fracture involving the right inferior pubic rami. 4. Right adrenal mass which is nonspecific but likely represents an adenoma. 5. Moderate diverticulosis. Efraín Anderson MD Shoulder X-Ray 03/17/16 0000 Signed Impressions: Service Date/Time: February 16:21 - CONCLUSION: 1. No acute fracture or malalignment. 2. Subcutaneous emphysema and right-sided chest tube again noted. Efraín Anderson MD Lower Extremity CT 03/17/16 0000 Signed Impressions: Service Date/Time: February 13:09 - CONCLUSION: 1. 3 column acetabular fracture as above Aaron Cordero MD PE at Discharge GENERAL: 75-year-old well-nourished, well developed male OOB in chair. SKIN: Warm and dry. HEAD: Normocephalic. CARDIOVASCULAR: Regular rate and rhythm. RESPIRATORY: Lungs clear and diminished to auscultation. Breath sounds equal bilaterally. Right lateral chest tube in place secured to pleura-vac, on water seal. GASTROINTESTINAL: Abdomen soft, non-tender, nondistended. + BS. MUSCULOSKELETAL: Extremities without cyanosis, or edema. No obvious deformities. NEUROLOGICAL: Awake and alert. Normal speech. Hospital Course [place]: Fell 15 feet while cutting branches on the ladder, landing on his right side. No LOC. GCS 15. Initial complaints of right-sided hip pain. INJURIES: RIGHT Rib fx (4-11) RIGHT PTX w/ CT placement RIGHT acetabular fx (non-op) RIGHT inferior pubic rami fx (non-displaced) Sacral fx RIGHT shoulder contusion PMHx: HTN, CAD with stents on Plavix. Diet: Regular, tolerating. Pulmonary: IS, EZPAP, Acapella. Encouraged use. Pain: [place], Robaxin. Pain controlled. Activity: OOB, PT, OT evaluating. (TTWB RLE). Patient to wear sling on right when OOB. GI: Pepcid Bowel: Eliza-colace, MOM scheduled. LBM 03/22. DVT: SCD, Lovenox 40 QD Resume Plavix when home dosage obtained. CT removed today at bedside. F/U CXR stable- shows resolving small apical PTX. Ortho cleared for discharge. CM consulted for discharge planning. Patient has been accepted at [facility]. Patient is clear from Trauma surgery standpoint to safely discharge to inpatient rehab. Plan of care discussed patient at bedside. Pt Condition on Discharge: Stable Discharge Disposition: Rehab Inpatient Discharge Instructions DIET: Follow Instructions for: As Tolerated, No Restrictions Activities you can perform: Partial Weight Bearing Other Activity Instructions: Toe touch weight bearing right leg Wear sling to right arm when out of bed. Wendy Hollis Mar 24, 2016 12:09
[2016-03-24] MEDS ORDERED: ENOX40P SQ (12:10)
[2016-03-24 12:32] VITALS: RESP 18
[2016-04-06] MEDS ORDERED: ATOR1TAB18 PO (13:00)
[2016-04-06] MEDS ORDERED: ENOX40P SQ (13:00)
[2016-04-06] MEDS ORDERED: FAMO20TA2 PO (13:00)
[2016-04-06] MEDS ORDERED: POLY17S PO (13:00)
[2016-04-06] MEDS ORDERED: OXYC-392 PO (13:00)
[2016-04-06] MEDS ORDERED: LISI-515 PO (13:00)
[2016-04-06] MEDS ORDERED: ASPI81TA11 PO (13:00)
[2016-04-06] MEDS ORDERED: DOCU1CAP39 PO (13:00)
[2016-04-06] MEDS ORDERED: LIDO5DIS35 TD (13:00)
[2016-04-06] MEDS ORDERED: MORP1TAB24 PO (13:00)
== END 2016-03-24 14:52 | DRG 964 ==
LOC: NEPI 12:50 → NEDA 13:30 → EDBD 13:30 → N03B 14:51 → N06B 03-19 15:09
PROVIDERS: ADMIT Surgery; ATTEND Surgery
PROC: 0W9930Z Drainage of Right Pleural Cavity with Drainage Device, Percutaneous Approach (ICD-10-PCS; principal; 2016-03-17)
DX: S27.0XXA Traumatic pneumothorax, initial encounter (principal); S32.401A Unspecified fracture of right acetabulum, initial encounter for closed fracture; S22.41XA Multiple fractures of ribs, right side, initial encounter for closed fracture; S32.10XA Unspecified fracture of sacrum, initial encounter for closed fracture; S40.011A Contusion of right shoulder, initial encounter; S32.591A Other specified fracture of right pubis, initial encounter for closed fracture; Y93.H9 Activity, other involving exterior property and land maintenance, building and construction; Y92.096 Garden or yard of other non-institutional residence as the place of occurrence of the external cause; I10 Essential (primary) hypertension; Z95.5 Presence of coronary angioplasty implant and graft; I25.10 Atherosclerotic heart disease of native coronary artery without angina pectoris; E27.9 Disorder of adrenal gland, unspecified; K57.90 Diverticulosis of intestine, part unspecified, without perforation or abscess without bleeding; M54.5 Low back pain; M41.80 Other forms of scoliosis, site unspecified; W11.XXXA Fall on and from ladder, initial encounter
CPT/HCPCS: 32551; 70450; 71010; 71260; 72125; 72128; 72131; 72170; 73020; 73700; 74177; 80048; 82435; 82565; 82947; 84132; 84295; 84520; 85025; 85027; 85610; 85730; 86850; 86900; 86901; 87641; 93005; 94150; 94640; 94667; 94668; 96374; 96375; 99291; C9113; G0390; J1650; J1885; J2270; J2405; J7030; J7040; Q9967